=== PATIENT | male | born 1940 | race Caucasian/White ===

== ENCOUNTER 2016-11-29 13:16 | Inpatient (IN) | payer MEDICARE, OTHER ==
[2016-11-29] MEDS ORDERED: Sodium Chloride 0.9% 10 ML Syringe FLUSH PRN (13:40)
--- NOTE | 2016-11-29 15:17 | CR ---
Chest: Frontal view of the chest was obtained. Comparison: No previous study. Heart size and mediastinum are within normal limits. Slight density within the left lung base is seen most likely due to atelectasis. Mild blunting of the lateral left costophrenic angle is seen most likely chronic. Lungs otherwise are clear. Bony structures are grossly intact. Impression: 1. Slight left basilar atelectasis. 2. Minimal blunting of the lateral left costophrenic angle as noted above. 3. Nothing acute is suspected. Diagnostic code #2
--- NOTE | 2016-11-29 15:51 | EDM.PDOC ---
ED HISTORY OF PRESENT ILLNESS - General Chief Complaint: Cardiovascular Problem Stated Complaint: [facility] Time Seen by Provider: 11/29/16 13:37 Source of Information: Reports: Patient, RN notes reviewed - History of Present Illness INITIAL COMMENTS - FREE TEXT/NARRATIVE: 76-year-old male has been transferred here from [facility] for evaluation of shortness of breath. He states he's had some shortness of breath with exertion worsening over the past year or so. Today he was just very light activity he became very short of breath late this morning. Went to the [facility]. He was noted to be tachypneic, tachycardic and therefore transferred here for further evaluation. He has no chest pain with this. He has not been coughing any more than usual. He has no known personal history for heart problems. He does not smoke. No abdominal pain nausea or vomiting. - Related Data Allergies/ADRs: Allergies Allergy/AdvReac Type Severity Reaction Status Date / Time No Known Allergies Allergy Verified 11/29/16 13:58 Home Meds: Home Meds Finasteride [Proscar] 5 mg PO DAILY 11/29/16 [History] Lisinopril 40 mg PO DAILY 11/29/16 [History] Omeprazole 20 mg PO DAILY 11/29/16 [History] amLODIPine Besylate [Amlodipine Besylate] 10 mg PO DAILY 11/29/16 [History] Doxazosin [Cardura] 4 mg PO DAILY 11/30/16 [History] Pravastatin Sodium 40 mg PO DAILY 11/30/16 [History] Apixaban [Eliquis] 5 mg PO BID #60 tablet 12/01/16 [Rx] Apixaban [Eliquis] 10 mg PO BID #9 tablet 12/01/16 [Rx] Past Medical History Cardiovascular History: Reports: High cholesterol, Hypertension Gastrointestinal History: Reports: GERD Genitourinary History: Reports: Prostate disorder, Renal disease - Past Surgical History GI Surgical History: Reports: Appendectomy, Cholecystectomy, Colonoscopy Male Surgical History: Reports: Other (see below) Other Male Surgeries/Procedures: enlarged prostrate Social & Family History - Tobacco Use Smoking Status *Q: Never Smoker - Caffeine Use Caffeine Use: Reports: Coffee - Recreational Drug Use Recreational Drug Use: No ED ROS GENERAL - Review of Systems Review Of Systems: See Below Constitutional: Denies: fever, chills, diaphoresis HEENT: Denies: Sinus problem, Throat pain Respiratory: Reports: Shortness of Breath. Denies: Wheezing, Pleuritic Chest Pain Cardiovascular: Denies: Chest pain GI/Abdominal: Denies: Abdominal pain, Nausea, Vomiting Musculoskeletal: Denies: shoulder pain, arm pain, back pain Skin: Reports: no symptoms Neurological: Denies: Numbness, Tingling, Trouble Speaking, Weakness ED EXAM, GENERAL - Physical Exam Exam: See Below General Appearance: alert, other (Moderately short of breath) Eye Exam: bilateral eye: PERRL Nose: normal inspection Throat/Mouth: Normal inspection, Normal oropharynx Head: atraumatic. No: facial swelling Neck: supple, full range of motion, other (No JVD) Respiratory/Chest: respiratory distress (Moderate tachypnea). No: rales, rhonchi, wheezing, stridor Cardiovascular: tachycardia GI/Abdominal: soft, non tender Back Exam: No: CVA tenderness (L), CVA tenderness (R) Extremities: normal inspection. No: pedal edema, leg pain Neurological: alert, oriented, no motor/sensory deficits Skin Exam: Warm, Dry, Normal color Course - Vital Signs Last Recorded V/S: Last Vital Signs Temp 97.8 F 12/01/16 12:30 Pulse 94 12/01/16 12:30 Resp 20 12/01/16 12:30 BP 132/79 12/01/16 12:30 Pulse Ox 93 L 12/01/16 12:30 - Orders/Labs/Meds Labs: Laboratory Tests 11/29/16 11/29/16 11/29/16 Range/Units 13:28 13:28 13:28 WBC 7.38 (4.23-9.07) K/mm3 RBC 4.30 L (4.63-6.08) M/mm3 Hgb 12.8 L (13.7-17.5) gm/L Hct 39.5 L (40.1-51.0) % MCV 91.9 (79.0-92.2) fl MCH 29.8 (25.7-32.2) pg MCHC 32.4 (32.2-35.5) g/dl RDW Std Deviation 44.8 H (35.1-43.9) fL Plt Count 156 L (163-337) K/mm3 MPV 11.2 (9.4-12.3) fl Neut % (Auto) 61.7 (34.0-67.9) % Lymph % (Auto) 23.3 (21.8-53.1) % Hughes % (Auto) 11.2 (5.3-12.2) % Eos % (Auto) 2.7 (0.8-7.0) Baso % (Auto) 0.8 (0.1-1.2) % Neut # (Auto) 4.55 (1.78-5.38) K/mm3 Lymph # (Auto) 1.72 (1.32-3.57) K/mm3 Hughes # (Auto) 0.83 H (0.30-0.82) K/mm3 Eos # (Auto) 0.20 (0.04-0.54) K/mm3 Baso # (Auto) 0.06 (0.01-0.08) K/mm3 D-Dimer, Quantitative 3.84 H (0.19-0.59) mg/L Sodium 141 (136-145) mEq/L Potassium 4.2 (3.5-5.1) mEq/L Chloride 107 (98-107) mEq/L Carbon Dioxide 21 (21-32) mEq/L Anion Gap 17.2 H (5-15) BUN 28 H (7-18) mg/dL Creatinine 2.0 H (0.7-1.3) mg/dL Est Cr Clr Drug Dosing 32.95 mL/min Estimated GFR (MDRD) 33 (>60) mL/min BUN/Creatinine Ratio 14.0 (14-18) Glucose 163 H (83-115) mg/dL Calcium 8.5 (8.5-10.1) mg/dL Total Bilirubin 0.4 (0.2-1.0) mg/dL AST 32 (15-37) U/L ALT 52 (16-63) U/L Alkaline Phosphatase 90 (46-116) U/L Troponin I < 0.017 (0.00-0.056) ng/mL B-Natriuretic Peptide (0-100) pg/mL Total Protein 7.2 (6.4-8.2) g/dl Albumin 3.9 (3.4-5.0) g/dl Globulin 3.3 gm/dL Albumin/Globulin Ratio 1.2 (1-2) 11/29/16 Range/Units 13:28 WBC (4.23-9.07) K/mm3 RBC (4.63-6.08) M/mm3 Hgb (13.7-17.5) gm/L Hct (40.1-51.0) % MCV (79.0-92.2) fl MCH (25.7-32.2) pg MCHC (32.2-35.5) g/dl RDW Std Deviation (35.1-43.9) fL Plt Count (163-337) K/mm3 MPV (9.4-12.3) fl Neut % (Auto) (34.0-67.9) % Lymph % (Auto) (21.8-53.1) % Hughes % (Auto) (5.3-12.2) % Eos % (Auto) (0.8-7.0) Baso % (Auto) (0.1-1.2) % Neut # (Auto) (1.78-5.38) K/mm3 Lymph # (Auto) (1.32-3.57) K/mm3 Hughes # (Auto) (0.30-0.82) K/mm3 Eos # (Auto) (0.04-0.54) K/mm3 Baso # (Auto) (0.01-0.08) K/mm3 D-Dimer, Quantitative (0.19-0.59) mg/L Sodium (136-145) mEq/L Potassium (3.5-5.1) mEq/L Chloride (98-107) mEq/L Carbon Dioxide (21-32) mEq/L Anion Gap (5-15) BUN (7-18) mg/dL Creatinine (0.7-1.3) mg/dL Est Cr Clr Drug Dosing mL/min Estimated GFR (MDRD) (>60) mL/min BUN/Creatinine Ratio (14-18) Glucose (83-115) mg/dL Calcium (8.5-10.1) mg/dL Total Bilirubin (0.2-1.0) mg/dL AST (15-37) U/L ALT (16-63) U/L Alkaline Phosphatase (46-116) U/L Troponin I (0.00-0.056) ng/mL B-Natriuretic Peptide 47 (0-100) pg/mL Total Protein (6.4-8.2) g/dl Albumin (3.4-5.0) g/dl Globulin gm/dL Albumin/Globulin Ratio (1-2) Meds: Medications Discontinued Medications Generic Name Dose Route Start Last Admin Trade Name Freq PRN Reason Stop Dose Admin Al Hydroxide/Mg Hydroxide 30 ml 11/30/16 12:03 Mag-Al Plus PO Q4H PRN Heartburn Albuterol 2.5 mg 11/30/16 11:59 11/30/16 12:12 Proventil Neb Soln NEB 2.5 mg Q4H PRN Administration wheezing,sob Albuterol/Ipratropium 3 ml 11/29/16 20:07 Duoneb 3.0-0.5 Mg/3 Ml NEB QID PRN Shortness of Breath Amlodipine Besylate 10 mg 11/30/16 09:00 Norvasc PO DAILY JANETT Amlodipine Besylate 10 mg 11/29/16 21:00 11/30/16 21:04 Norvasc PO 10 mg BEDTIME JANETT Administration Apixaban 10 mg 11/30/16 08:00 12/01/16 10:19 Eliquis PO 12/06/16 23:59 10 mg BID JANETT Administration Apixaban 5 mg 12/07/16 09:00 Eliquis PO BID JANETT Diphtheria/Tetanus/Acell Pertussis 0.5 ml 11/29/16 20:27 Boostrix IM 11/29/16 20:28 .ONCE ONE Diphtheria/Tetanus/Acell Pertussis 0.5 ml 12/01/16 10:04 12/01/16 10:18 Boostrix IM 12/01/16 10:05 0.5 ml .ONCE ONE Administration Doxazosin Mesylate 4 mg 11/30/16 09:00 11/30/16 10:15 Cardura PO 4 mg DAILY JANETT Administration Doxazosin Mesylate 4 mg 12/01/16 18:00 Cardura PO QPM JANETT Enoxaparin Sodium 100 mg 11/29/16 17:21 11/29/16 17:27 Lovenox SUBCUT 11/29/16 17:22 100 mg ONETIME ONE Administration Finasteride 5 mg 11/30/16 09:00 Proscar PO DAILY JANETT Finasteride 5 mg 11/30/16 21:00 11/30/16 21:04 Proscar PO 5 mg BEDTIME JANETT Administration Lidocaine HCl 10 ml 12/01/16 09:53 12/01/16 10:15 Xylocaine 2% Jelly MUCMEM 12/01/16 09:54 10 ml ONETIME ONE Administration Lisinopril 40 mg 11/30/16 09:00 12/01/16 10:19 Prinivil PO 40 mg DAILY JANETT Administration Non-Formulary Medication 4 mg 11/30/16 09:00 Doxazosin Mesylate [Cardura Xl] PO DAILY JANETT Pantoprazole Sodium 40 mg 11/29/16 22:00 11/30/16 21:07 Protonix PO 40 mg 2200 JANETT Administration Doxazosin Mesylate [ 0 each 11/29/16 21:00 Cardura Xl] 4 Mg PO DAILY JANETT Pneumococcal 13-Valent Conj Vacc 0.5 ml 12/01/16 09:59 12/01/16 10:15 Prevnar 13 IM 12/01/16 10:00 0.5 ml .ONCE ONE Administration Pneumococcal Polyvalent Vaccine 0.5 ml 11/29/16 20:27 Pneumovax 23 IM 11/29/16 20:28 .ONCE ONE Simvastatin 20 mg 11/30/16 09:00 12/01/16 10:18 Zocor PO 20 mg DAILY JANETT Administration Sodium Chloride 10 ml 11/29/16 13:40 11/29/16 14:04 Saline Flush FLUSH 10 ml ASDIRECTED PRN Administration Keep Vein Open Sodium Chloride 10 ml 11/30/16 08:20 Saline Flush FLUSH ASDIRECTED PRN Keep Vein Open - Re-Assessments/Exams Free Text/Narrative Re-Assessment/Exam: 11/29/16 15:00. D-dimer did come back elevated at 3. Something. Chest x-ray does not show infiltrate, fluid or other etiology for her dyspnea, tachypnea, relative hypoxia. Therefore PE is of major concern. Unfortunately his creatinine is 2.0 so we cannot do a CT pulmonary angiogram. We will do a V/Q scan, see what that shows and go from there. Departure - Departure Time of Disposition: 14:00 Disposition: Admitted As Inpatient 67 Condition: serious Clinical Impression: Pulmonary embolism Qualifiers: Chronicity: acute Acute cor pulmonale presence: without acute cor pulmonale
[2016-11-29] MEDS ORDERED: Enoxaparin 100 MG/1 ML Syringe SUBCUT ONE (17:21)
--- NOTE | 2016-11-29 19:57 | PCM.HP ---
H&P History of Present Illness - General Date of Service: 11/29/16 Admit Problem/Dx: Admission Diagnosis/Problem Admission Diagnosis/Problem Pulmonary embolism Source of Information: Patient, Provider History Limitations: Reports: No limitations - History of Present Illness Initial Comments - Free Text/Narative: 76 year old active male from the [facility] for an evaluation of sudden SOB, moderate to severe. He is being admitted to the ICU for close monitoring with tachycardia and a high probability VQ scan. He denies syncope, pre- syncope and CP. There has been no orthopnea or PND. VS in the ED, HR 123, BP 169/78. 141/4.2/107/21/28/2.0; GFR 33; BNP 47/TN I <0.017. Onset of Symptoms: Reports: today, sudden Duration of Symptoms: Reports: Hour(s):, Getting worse Location: Reports: chest Severity: moderate Improves with: Reports: Medication Worsens with: Reports: None Associated Symptoms: Reports: chest pain, shortness of breath, weakness - Related Data Allergies/Adverse Reactions: Allergies Allergy/AdvReac Type Severity Reaction Status Date / Time No Known Allergies Allergy Verified 11/29/16 13:58 Home Medications: Home Meds Doxazosin Mesylate [Cardura XL] 4 mg PO DAILY 11/29/16 [History] Finasteride [Proscar] 5 mg PO DAILY 11/29/16 [History] Lisinopril 40 mg PO DAILY 11/29/16 [History] Omeprazole 20 mg PO DAILY 11/29/16 [History] Pravastatin [Pravachol] 80 mg PO DAILY 11/29/16 [History] amLODIPine Besylate [Amlodipine Besylate] 10 mg PO DAILY 11/29/16 [History] Past Medical History Cardiovascular History: Reports: High cholesterol, Hypertension Gastrointestinal History: Reports: GERD Genitourinary History: Reports: Prostate disorder, Renal disease - Past Surgical History GI Surgical History: Reports: Appendectomy, Cholecystectomy, Colonoscopy Male Surgical History: Reports: Other (see below) Other Male Surgeries/Procedures: enlarged prostrate Social & Family History - Tobacco Use Smoking Status *Q: Never Smoker - Caffeine Use Caffeine Use: Reports: Coffee - Recreational Drug Use Recreational Drug Use: No H&P Review of Systems - Review of Systems: Review Of Systems: See Below General: Reports: weakness, fatigue HEENT: Reports: no symptoms Pulmonary: Reports: Shortness of Breath, Wheezing Cardiovascular: Reports: chest pain Gastrointestinal: Reports: No symptoms Genitourinary: Reports: no symptoms Musculoskeletal: Reports: no symptoms Skin: Reports: no symptoms Psychiatric: Reports: no symptoms Neurological: Reports: No Symptoms Hematologic/Lymphatic: Reports: no symptoms Immunologic: Reports: no symptoms Exam - Exam Exam: See Below - Vital Signs Vital Signs: Last Vital Signs Temp 36.1 C 11/29/16 13:24 Pulse 123 H 11/29/16 13:24 Resp 18 11/29/16 13:24 BP 169/78 H 11/29/16 13:24 Pulse Ox 93 L 11/29/16 13:24 Weight: 106.594 kg - Exam Quality Assessment: supplemental oxygen, DVT prophylaxis General: alert, oriented, cooperative, mild distress HEENT: Nares patent, Normal nasal septum, Pupils equal, Pupils reactive Neck: supple, trachea midline Lungs: Normal respiratory effort, Decreased breath sounds, Wheezing Cardiovascular: regular rate, tachycardia Abdomen: normal bowel sounds, soft (Male) Exam: Deferred Rectal (Males) Exam: Deferred Back Exam: normal inspection Extremities: normal pulses Skin: warm Neurological: cranial nerves intact, reflexes equal bilateral Neuro Extensive - Mental Status: alert, oriented x3, normal mood/affect, normal cognition, memory intact Neuro Extensive - Motor, Sensory, Reflexes: CN II-XII intact Psychiatric: alert, normal affect, normal mood - Patient Data Result Diagrams: 11/29/16 13:28 11/29/16 13:28 *Q Meaningful Use (ADM) - VTE *Q VTE Criteria *Q: - Stroke *Q Stroke Criteria *Q: - AMI *Q AMI Criteria *Q: - Problem List (1) Pulmonary embolus SNOMED Code(s): 64930416, 35897005 ICD Code: I26.99 - OTHER PULMONARY EMBOLISM WITHOUT ACUTE COR PULMONALE Status: Acute Current Visit: Yes (2) Hyperlipidemia SNOMED Code(s): 80520641 ICD Code: E78.5 - HYPERLIPIDEMIA, UNSPECIFIED Status: Acute Current Visit : Yes (3) Hypertension SNOMED Code(s): 05244995 ICD Code: I10 - ESSENTIAL (PRIMARY) HYPERTENSION Status: Acute Current Visit: Yes (4) Chronic kidney disease SNOMED Code(s): 693516865 ICD Code: N18.9 - CHRONIC KIDNEY DISEASE, UNSPECIFIED Status: Acute Current Visit: Yes Problem List Initiated/Reviewed/Updated: Yes Orders Last 24hrs: Active Orders 24 hr Category Date Time Status Vital Signs [RC] PER UNIT ROUTINE Care 11/29/16 19:25 Active Consult to Case Management [CONS] Routine Cons 11/29/16 19:49 Ordered Consult to Occupational Therapy [OT Evaluation and Cons 11/30/16 09:00 Active Treatment] [CONS] Routine Consult to Physical Therapy [PT Evaluation and Cons 12/01/16 09:00 Active Treatment] [CONS] Routine BASIC METABOLIC PANEL,BMP [CHEM] DAILY Lab 11/30/16 05:00 Ordered BASIC METABOLIC PANEL,BMP [CHEM] DAILY Lab 12/01/16 05:00 Ordered BASIC METABOLIC PANEL,BMP [CHEM] DAILY Lab 12/02/16 05:00 Ordered CBC WITH AUTO DIFF [HEME] DAILY Lab 11/30/16 05:00 Ordered CBC WITH AUTO DIFF [HEME] DAILY Lab 12/01/16 05:00 Ordered CBC WITH AUTO DIFF [HEME] DAILY Lab 12/02/16 05:00 Ordered TROPONIN I [CHEM] Routine Lab 11/30/16 05:00 Ordered Apixaban [Eliquis] Med 11/30/16 08:00 Ordered 10 mg PO BID Doxazosin Mesylate [Cardura XL] Med 11/29/16 21:00 Ordered 4 mg PO DAILY Finasteride [Proscar] Med 11/30/16 09:00 Ordered 5 mg PO DAILY Lisinopril [Lisinopril] Med 11/30/16 09:00 Ordered 40 mg PO DAILY Omeprazole [Omeprazole] Med 11/30/16 09:00 Ordered 20 mg PO DAILY Pravastatin Med 11/30/16 09:00 Ordered 80 mg PO DAILY amLODIPine [Norvasc] Med 11/29/16 21:00 Ordered 10 mg PO DAILY Code Status [Resuscitation Status] Routine Resus Stat 11/29/16 19:25 Ordered Medication Orders Apixaban (Eliquis) 10 mg PO BID JANETT Finasteride (Proscar) 5 mg PO DAILY JANETT Non-Formulary Medication (Lisinopril [Lisinopril]) 40 mg PO DAILY JANETT Non-Formulary Medication (Omeprazole [Omeprazole]) 20 mg PO DAILY JANETT Non-Formulary Medication (Pravastatin) 80 mg PO DAILY JANETT Sodium Chloride (Saline Flush) 10 ml FLUSH ASDIRECTED PRN PRN Reason: Keep Vein Open Last Admin: 11/29/16 14:04 Dose: 10 ml Assessment/Plan Comment:: Impression: PE, hemodynamically stable SOB Chronic HTN Hyperlipidemia GERD CKD Plan: Eliquis 10 mg BID, decrease to 5 mg BID per indication 2D echo re: RV strain Home meds Daily Labs GI prophylaxis
[2016-11-29] MEDS ORDERED: Albuterol/Ipratropium 3.0-0.5 MG/3 ML Neb Soln NEB PRN (20:07)
[2016-11-29] MEDS ORDERED: Diphtheria,Pertussis(Acell),Tetanus Vaccine 0.5 ML SDV inactive IM ONE (20:27)
[2016-11-29] MEDS ORDERED: Pneumococcal Polyvalent-23 Vaccine 0.5 ML SDV IM ONE (20:27)
[2016-11-29] MEDS ORDERED: DOXAZOSIN MESYLATE 4 MG PO SCH (21:00)
[2016-11-29] MEDS: amLODIPine 10 MG Tab PO SCH (21:07)
[2016-11-29] MEDS: Pantoprazole 40 MG Tab.CR PO SCH (21:46)
[2016-11-30] MEDS ORDERED: Sodium Chloride 0.9% 10 ML Syringe FLUSH PRN (08:20)
[2016-11-30] MEDS ORDERED: DOXAZOSIN MESYLATE 4 MG PO SCH (09:00)
[2016-11-30] MEDS ORDERED: amLODIPine 10 MG Tab PO SCH (09:00)
[2016-11-30] MEDS ORDERED: Finasteride 5 MG Tab PO SCH ×2 (09:00→21:00)
[2016-11-30] MEDS ORDERED: Doxazosin 4 MG Tab PO SCH (09:00)
--- NOTE | 2016-11-30 09:16 | NM ---
Ventilation/perfusion lung scan Technique: 2.0 mCi of technetium 99m MAA was given intravenously. Scintigraphic imaging then obtained over both lung hernandez. During the study, 40.5 mCi of technetium 99m DTPA was aerosolized and patient inhaled the mixture. Continued scintigraphic imaging was obtained. Findings: Multiple subsegmental and segmental defects are seen on the perfusion study showing mismatch on the ventilation exam. Impression: 1. Findings felt compatible with high probability for pulmonary embolism. Agree with preliminary report issued by [facility] (preliminary report dictated on 11/29/16, 6:24 PM Central Time) Diagnostic code #5
--- NOTE | 2016-11-30 09:52 | PCM.PN ---
- General Info Date of Service: 11/30/16 Admission Dx/Problem (Free Text): Admission Diagnosis/Problem Admission Diagnosis/Problem Pulmonary embolism Subjective Update: Follow Up Functional Status: Reports: pain controlled, tolerating diet, ambulating, urinating. Denies: new symptoms - Review of Systems General: Denies: Fever, Chills HEENT: Reports: no symptoms Pulmonary: Reports: wheezing. Denies: shortness of breath Cardiovascular: Denies: Chest Pain, Palpitations, Dyspnea on Exertion, Edema Gastrointestinal: Denies: Abdominal pain, Nausea, Vomiting Genitourinary: Reports: no symptoms Musculoskeletal: Reports: no symptoms Skin: Denies: cyanosis, jaundice, rash Neurological: Denies: Confusion, Dizziness, Difficulty Walking, Weakness Psychiatric: Denies: depression, anxiety, hallucinations Systems Review Comment:: No overnight or acute issues. He has trouble urinating but this is not new to him. His O2 sat stable at 95% on 2L NC. - Patient Data Vitals - most recent: Last Vital Signs Temp 36.6 C 11/30/16 04:00 Pulse 85 11/30/16 04:00 Resp 20 11/30/16 04:00 BP 127/67 11/30/16 04:00 Pulse Ox 95 11/30/16 04:00 Weight - most recent: 106.685 kg I&O - last 24 hours: Intake & Output 11/29/16 11/30/16 11/30/16 22:59 06:59 14:59 Intake Total 480 Output Total 825 Balance -345 Lab Results last 24 hrs: Laboratory Results - last 24 hr 11/30/16 11/30/16 Range/Units 06:25 06:25 WBC 5.79 (4.23-9.07) K/mm3 RBC 4.20 L (4.63-6.08) M/mm3 Hgb 12.6 L (13.7-17.5) gm/L Hct 38.2 L (40.1-51.0) % MCV 91.0 (79.0-92.2) fl MCH 30.0 (25.7-32.2) pg MCHC 33.0 (32.2-35.5) g/dl RDW Std Deviation 44.3 H (35.1-43.9) fL Plt Count 157 L (163-337) K/mm3 MPV 10.9 (9.4-12.3) fl Neut % (Auto) 56.3 (34.0-67.9) % Lymph % (Auto) 28.8 (21.8-53.1) % [place] % (Auto) 12.1 (5.3-12.2) % Eos % (Auto) 2.1 (0.8-7.0) Baso % (Auto) 0.5 (0.1-1.2) % Neut # (Auto) 3.26 (1.78-5.38) K/mm3 Lymph # (Auto) 1.67 (1.32-3.57) K/mm3 [place] # (Auto) 0.70 (0.30-0.82) K/mm3 Eos # (Auto) 0.12 (0.04-0.54) K/mm3 Baso # (Auto) 0.03 (0.01-0.08) K/mm3 Sodium 140 (136-145) mEq/L Potassium 4.3 (3.5-5.1) mEq/L Chloride 107 (98-107) mEq/L Carbon Dioxide 21 (21-32) mEq/L Anion Gap 16.3 H (5-15) BUN 25 H (7-18) mg/dL Creatinine 1.9 H (0.7-1.3) mg/dL Est Cr Clr Drug Dosing 35.78 mL/min Estimated GFR (MDRD) 35 (>60) mL/min BUN/Creatinine Ratio 13.2 L (14-18) Glucose 138 H (83-115) mg/dL Calcium 8.6 (8.5-10.1) mg/dL Troponin I < 0.017 (0.00-0.056) ng/mL Med Orders - Current: Current Medications Albuterol/Ipratropium (Duoneb 3.0-0.5 Mg/3 Ml) 3 ml NEB QID PRN PRN Reason: Shortness of Breath Amlodipine Besylate (Norvasc) 10 mg PO BEDTIME [facility] Last Admin: 11/29/16 21:07 Dose: 10 mg Apixaban (Eliquis) 10 mg PO BID [facility] Stop: 12/06/16 23:59 Apixaban (Eliquis) 5 mg PO BID [facility] Doxazosin Mesylate (Cardura) 4 mg PO DAILY [facility] Finasteride (Proscar) 5 mg PO BEDTIME JANETT Lisinopril (Prinivil) 40 mg PO DAILY [facility] Pantoprazole Sodium (Protonix) 40 mg PO 2200 [facility] Last Admin: 11/29/16 21:46 Dose: 40 mg Simvastatin (Zocor) 20 mg PO DAILY [facility] Sodium Chloride (Saline Flush) 10 ml FLUSH ASDIRECTED PRN PRN Reason: Keep Vein Open Discontinued Medications Amlodipine Besylate (Norvasc) 10 mg PO DAILY [facility] Diphtheria/Tetanus/Acell Pertussis (Boostrix) 0.5 ml IM .ONCE ONE Stop: 11/29/16 20:28 Enoxaparin Sodium (Lovenox) 100 mg SUBCUT ONETIME ONE Stop: 11/29/16 17:22 Last Admin: 11/29/16 17:27 Dose: 100 mg Finasteride (Proscar) 5 mg PO DAILY [facility] Non-Formulary Medication (Doxazosin Mesylate [Cardura Xl]) 4 mg PO DAILY [facility] Doxazosin Mesylate [ (Cardura Xl] 4 Mg) 0 each PO DAILY [facility] Pneumococcal Polyvalent Vaccine (Pneumovax 23) 0.5 ml IM .ONCE ONE Stop: 11/29/16 20:28 Sodium Chloride (Saline Flush) 10 ml FLUSH ASDIRECTED PRN PRN Reason: Keep Vein Open Last Admin: 11/29/16 14:04 Dose: 10 ml - Exam Quality Assessment: supplemental oxygen (2l NC at 95%) General: alert, oriented, cooperative, no acute distress, other (Obese) HEENT: Pupils equal, Pupils reactive, EOMI, Mucous membr. moist/pink Neck: supple, trachea midline, no JVD, no thyromegaly Lungs: Normal respiratory effort, Wheezing Cardiovascular: Regular Rate, Regular Rhythm Abdomen: bowel sounds present, soft, no tenderness, no distension, other (Obese) (Male) Exam: Deferred Back Exam: normal inspection, decreased range of motion Extremities: no edema, normal pulses, no tenderness/swelling, no clubbing, no cyanosis, no calf tenderness Skin: warm, dry, intact Neurological: no new focal deficit Psy/Mental Status: alert, normal affect, normal mood - Problem List Review Problem List Initiated/Reviewed/Updated: Yes - Plan Plan:: Impression: Acute: Multiple PEs, remains hemodynamically stable - Likely unprovoked - No genetic hx/o coagulopathy, No recent surgery, prolonged travel or hx/o blood clot - Admits to being cough potato lately - No leg complaints, no edema or erythema - Work up for etiology can be done after treatment Hypoxemia 2/2 Above - Continue supplemental O2 Urinary Frequency - Has hx/o BPH - He is only on proscar - Will resume his cardura Chronic HTN Hyperlipidemia GERD CKD Stage 3-4, Stable BPH Plan: Continue current treatment Transfer to Med-Surg Eliquis 10 mg BID, decrease to 5 mg BID per indication 2D echo re: RV strain, completed awaiting final report Routine AM Labs GI prophylaxis Additional orders as above Possible d/c in 1-2 days
[2016-11-30] MEDS: Simvastatin 20 MG Tab PO SCH (10:14)
[2016-11-30] MEDS: Apixaban 5 MG Tab PO SCH ×3 (10:14→21:04)
[2016-11-30] MEDS: Lisinopril 20 MG Tab PO SCH (10:15)
[2016-11-30] MEDS ORDERED: Albuterol 0.083% 2.5 MG/3 ML Neb Soln NEB PRN (11:59)
[2016-11-30] MEDS ORDERED: Aluminum Hydroxide/Magnesium Hydroxide/Simethicone Susp 30 ML Cup PO PRN (12:03)
[2016-11-30] MEDS: amLODIPine 10 MG Tab PO SCH (21:04)
[2016-11-30] MEDS: Pantoprazole 40 MG Tab.CR PO SCH (21:07)
[2016-12-01] MEDS ORDERED: Doxazosin 4 MG Tab PO SCH ×2 (09:00→18:00)
[2016-12-01] MEDS ORDERED: PRAVASTATIN SODIUM 40 MG PO SCH (09:00)
--- NOTE | 2016-12-01 09:48 | US ---
Bilateral lower extremity deep venous ultrasound: Duplex and color flow imaging was obtained of the right and left common femoral, proximal greater saphenous, superficial femoral, popliteal, posterior tibial and peroneal veins. Findings: Lack of phasic flow, augmentation and compression seen within the right popliteal, posterior tibial and peroneal veins compatible with deep venous thrombosis. Other veins show normal phasic flow, augmentation and compression. Impression: 1. Findings compatible with thrombus within the right popliteal, posterior tibial and peroneal veins. Diagnostic code #5 [facility] Smeller called and talked with Dr. Marinelli, as Dr. Balderas had left already on 12/01/16 at 08:57.
[2016-12-01] MEDS ORDERED: Lidocaine 2% Jelly 10 ML Urojet MUCMEM ONE (09:53)
[2016-12-01] MEDS ORDERED: Pneumococcal 13-Valent Conjugate Vaccine 0.5 ML Syringe IM ONE (09:59)
[2016-12-01] MEDS ORDERED: Diphtheria,Pertussis(Acell),Tetanus Vaccine 0.5 ML SDV inactive IM ONE (10:04)
[2016-12-01] MEDS: Simvastatin 20 MG Tab PO SCH (10:18)
[2016-12-01] MEDS: Apixaban 5 MG Tab PO SCH (10:19)
[2016-12-01] MEDS: Lisinopril 20 MG Tab PO SCH (10:19)
--- NOTE | 2016-12-01 10:40 | PCM.DCSUM1 ---
Discharge Summary - Hospital Course Brief History: This is a 76 year old white male who comes form [facility] for an evaluation of sudden onset of moderate to severe SOB and was found to have multiple sub-segmental defects on V/Q scan compatible with PE. - Discharge Data Discharge Date: 12/08/16 Discharge Disposition: Home, Self-Care 01 Condition: Good - Discharge Diagnosis/Problem(s) (1) Hypoxemia SNOMED Code(s): 422985489 ICD Code: R09.02 - HYPOXEMIA Status: Acute (2) Urinary retention SNOMED Code(s): 973098762 ICD Code: R33.9 - RETENTION OF URINE, UNSPECIFIED Status: Acute (3) Chronic kidney disease SNOMED Code(s): 413147576 ICD Code: N18.9 - CHRONIC KIDNEY DISEASE, UNSPECIFIED Status: Chronic Qualifiers: Chronic kidney disease stage: stage 4 (severe) Qualified Code(s): N18.4 - Chronic kidney disease, stage 4 (severe) (4) Pulmonary embolus SNOMED Code(s): 49000169, 66310229 ICD Code: I26.99 - OTHER PULMONARY EMBOLISM WITHOUT ACUTE COR PULMONALE Status: Acute Qualifiers: Chronicity: acute Acute cor pulmonale presence: without acute cor pulmonale - Patient Summary/Data Operative Procedure(s) Performed: None Complications: None Consults: Consultations 11/29/16 19:49 Consult to Case Management [CONS] Routine 11/30/16 09:00 Consult to Occupational Therapy [OT Evaluation and Treatment] [CONS] Routine 12/01/16 09:00 Consult to Physical Therapy [PT Evaluation and Treatment] [CONS] Routine Hospital Course: Patient was primarily admitted for unprovoked PE. He admitted to being a "cough potato" for the past week leading to his admission. His V/Q scan showed multiple pulmonary embolism and his Duplex U/S was positive for DVT on right popliteal, posterior tibial and peroneal veins. Patient was put on eliquis for treatment of PE/DVT and he tolerated the medication well. His hospital course was fairly uncomplicated. He did have some issues with hypoxemia related to his multiple blood clot but he was provided with supplemental O2. His O2 saturation hovers in the 88-92 on RA but otherwise fairly stable since admission. On this admission, he developed urinary retention related to his underlying BPH. He was continued on his Proscar and Cardura but w/o much help. We agreed however to have marshall catheter in and he will be further evaluated by outpatient Urology in 2-3 weeks. Patient has done fairly well since admission. He will be discharged with eliquis 10 mg po BID for the next 3 days as he could not afford it and (it appears) his insurance would not cover this medication. Patient will see Lyla Rowell on Sunday at 1300 instead of her PCP (Sandra Gonzalez), he will be likely switched to Warfarin/Lovenox from there on for standard treatment. Patient was advised to come back or seek immediate care for worsening of his symptoms. He expressed understanding and in agreement with the plans as discussed above. His PCP was called and updated on the day of discharge. - Patient Instructions Diet: Usual Diet as Tolerated Activity: As Tolerated Driving: Do Not Drive Showering/Bathing: May Shower Notify Provider of: Fever, Increased Pain, Swelling and Redness, Nausea and/or Vomiting Other/Special Instructions: - Please take all medications as directed. - Use supplemental O2 provided for shortness of breath as instructed. - Keep your appointment with Urology as scheduled. - Call you PCP for any questions or concerns - Discharge Plan Prescriptions/Med Rec: Apixaban [Eliquis] 5 mg PO BID #60 tablet Apixaban [Eliquis] 10 mg PO BID #9 tablet Home Medications: Home Meds Finasteride [Proscar] 5 mg PO DAILY 11/29/16 [History] Lisinopril 40 mg PO DAILY 11/29/16 [History] Omeprazole 20 mg PO DAILY 11/29/16 [History] amLODIPine Besylate [Amlodipine Besylate] 10 mg PO DAILY 11/29/16 [History] Doxazosin [Cardura] 4 mg PO DAILY 11/30/16 [History] Pravastatin Sodium 40 mg PO DAILY 11/30/16 [History] Apixaban [Eliquis] 5 mg PO BID #60 tablet 12/01/16 [Rx] Apixaban [Eliquis] 10 mg PO BID #9 tablet 12/01/16 [Rx] Patient Handouts: Marshall Catheter Care, Adult, Incentive Spirometer, Pulmonary Embolism, Apixaban oral tablets Referrals: Deion Dimas MD [Ordering Only Provider] - 12/07/16 11:15 am (The [facility] has been set up to come pick you up to bring you to this appointment at 06:45 am. This urology appointment is in Central Standard Time (PERFORMANCE SPECIALIST). Come to [facility] at 10:45 am (PERFORMANCE SPECIALIST) and check in at the admitting desk at [facility]. Bring photo ID, insurance cars and a list of medications to this appointment.) Sandra Gonzalez NP [Primary Care Provider] - 12/11/16 10:30 am (You will need to arrange transportation to and from this appointment with Sandra) - Discharge Summary/Plan Comment DC Time >30 min.: Yes (45 mins) Discharge Summary/Plan Comment: Discharge to Home - General Info Date of Service: 12/01/16 Admission Dx/Problem (Free Text: Admission Diagnosis/Problem Admission Diagnosis/Problem Pulmonary embolism Subjective Update: Follow Up Functional Status: Reports: pain controlled, tolerating diet, ambulating, urinating. Denies: new symptoms - Review of Systems General: Denies: Fever, Chills HEENT: Reports: no symptoms Pulmonary: Denies: shortness of breath Cardiovascular: Denies: Chest Pain, Palpitations, Dyspnea on Exertion, Edema Gastrointestinal: Denies: Abdominal pain, Nausea, Vomiting Genitourinary: Reports: frequency, retention Musculoskeletal: Reports: no symptoms Skin: Reports: no symptoms Neurological: Denies: Confusion, Difficulty Walking, Weakness Psychiatric: Denies: depression, anxiety, hallucinations, suicidal ideation - Patient Data Vitals - Most Recent: Last Vital Signs Temp 36.6 C 12/01/16 08:05 Pulse 90 12/01/16 08:05 Resp 20 12/01/16 08:05 BP 140/81 12/01/16 08:05 Pulse Ox 85 L 12/01/16 09:23 Weight - Most Recent: 107.955 kg I&O - Last 24 hours: Intake & Output 11/30/16 12/01/16 12/01/16 22:59 06:59 14:59 Intake Total 600 Output Total 2080 985 Balance -1480 -985 Lab Results - Last 24 hrs: Laboratory Results - last 24 hr 11/30/16 12/01/16 12/01/16 Range/Units 09:45 05:30 05:30 WBC 6.72 (4.23-9.07) K/mm3 RBC 4.01 L (4.63-6.08) M/mm3 Hgb 12.0 L (13.7-17.5) gm/L Hct 36.7 L (40.1-51.0) % MCV 91.5 (79.0-92.2) fl MCH 29.9 (25.7-32.2) pg MCHC 32.7 (32.2-35.5) g/dl RDW Std Deviation 44.4 H (35.1-43.9) fL Plt Count 156 L (163-337) K/mm3 MPV 11.2 (9.4-12.3) fl Neut % (Auto) 54.4 (34.0-67.9) % Lymph % (Auto) 25.9 (21.8-53.1) % [place] % (Auto) 11.3 (5.3-12.2) % Eos % (Auto) 7.4 H (0.8-7.0) Baso % (Auto) 0.7 (0.1-1.2) % Neut # (Auto) 3.65 (1.78-5.38) K/mm3 Lymph # (Auto) 1.74 (1.32-3.57) K/mm3 [place] # (Auto) 0.76 (0.30-0.82) K/mm3 Eos # (Auto) 0.50 (0.04-0.54) K/mm3 Baso # (Auto) 0.05 (0.01-0.08) K/mm3 Sodium 140 (136-145) mEq/L Potassium 4.5 (3.5-5.1) mEq/L Chloride 106 (98-107) mEq/L Carbon Dioxide 23 (21-32) mEq/L Anion Gap 15.5 H (5-15) BUN 28 H (7-18) mg/dL Creatinine 1.8 H (0.7-1.3) mg/dL Est Cr Clr Drug Dosing 37.77 mL/min Estimated GFR (MDRD) 37 (>60) mL/min BUN/Creatinine Ratio 15.6 (14-18) Glucose 123 H (83-115) mg/dL Calcium 8.6 (8.5-10.1) mg/dL Urine Color Yellow (Yellow) Urine Appearance Clear (Clear) Urine pH 6.5 (5.0-8.0) Ur Specific [place] 1.025 (1.005-1.030) Urine Protein Trace H (Negative) Urine Glucose (UA) Negative (Negative) Urine Ketones Negative (Negative) Urine Occult Blood Negative (Negative) Urine Nitrite Negative (Negative) Urine Bilirubin Negative (Negative) Urine Urobilinogen 0.2 (0.2-1.0) Ur Leukocyte Esterase Negative (Negative) Urine RBC 0-5 (0-5) /hpf Urine WBC 0-5 (0-5) /hpf Ur Epithelial Cells Not Reportable Ur Squamous Epith Cells 0-5 (0-5) /hpf Urine Bacteria Occasional (FEW) /hpf Urine Mucus Not seen (FEW) /hpf Med Orders - Current: Current Medications Al Hydroxide/Mg Hydroxide (Mag-Al Plus) 30 ml PO Q4H PRN PRN Reason: Heartburn Albuterol (Proventil Neb Soln) 2.5 mg NEB Q4H PRN PRN Reason: wheezing,sob Last Admin: 11/30/16 12:12 Dose: 2.5 mg Albuterol/Ipratropium (Duoneb 3.0-0.5 Mg/3 Ml) 3 ml NEB QID PRN PRN Reason: Shortness of Breath Amlodipine Besylate (Norvasc) 10 mg PO BEDTIME [facility] Last Admin: 11/30/16 21:04 Dose: 10 mg Apixaban (Eliquis) 10 mg PO BID [facility] Stop: 12/06/16 23:59 Last Admin: 12/01/16 10:19 Dose: 10 mg Apixaban (Eliquis) 5 mg PO BID [facility] Doxazosin Mesylate (Cardura) 4 mg PO QPM [facility] Finasteride (Proscar) 5 mg PO BEDTIME [facility] Last Admin: 11/30/16 21:04 Dose: 5 mg Lisinopril (Prinivil) 40 mg PO DAILY [facility] Last Admin: 12/01/16 10:19 Dose: 40 mg Pantoprazole Sodium (Protonix) 40 mg PO 2200 [facility] Last Admin: 11/30/16 21:07 Dose: 40 mg Simvastatin (Zocor) 20 mg PO DAILY [facility] Last Admin: 12/01/16 10:18 Dose: 20 mg Sodium Chloride (Saline Flush) 10 ml FLUSH ASDIRECTED PRN PRN Reason: Keep Vein Open Discontinued Medications Amlodipine Besylate (Norvasc) 10 mg PO DAILY [facility] Diphtheria/Tetanus/Acell Pertussis (Boostrix) 0.5 ml IM .ONCE ONE Stop: 11/29/16 20:28 Diphtheria/Tetanus/Acell Pertussis (Boostrix) 0.5 ml IM .ONCE ONE Stop: 12/01/16 10:05 Last Admin: 12/01/16 10:18 Dose: 0.5 ml Doxazosin Mesylate (Cardura) 4 mg PO DAILY [facility] Last Admin: 11/30/16 10:15 Dose: 4 mg Enoxaparin Sodium (Lovenox) 100 mg SUBCUT ONETIME ONE Stop: 11/29/16 17:22 Last Admin: 11/29/16 17:27 Dose: 100 mg Finasteride (Proscar) 5 mg PO DAILY [facility] Lidocaine HCl (Xylocaine 2% Jelly) 10 ml MUCMEM ONETIME ONE Stop: 12/01/16 09:54 Last Admin: 12/01/16 10:15 Dose: 10 ml Non-Formulary Medication (Doxazosin Mesylate [Cardura Xl]) 4 mg PO DAILY [facility] Doxazosin Mesylate [ (Cardura Xl] 4 Mg) 0 each PO DAILY [facility] Pneumococcal 13-Valent Conj Vacc (Prevnar 13) 0.5 ml IM .ONCE ONE Stop: 12/01/16 10:00 Last Admin: 12/01/16 10:15 Dose: 0.5 ml Pneumococcal Polyvalent Vaccine (Pneumovax 23) 0.5 ml IM .ONCE ONE Stop: 11/29/16 20:28 Sodium Chloride (Saline Flush) 10 ml FLUSH ASDIRECTED PRN PRN Reason: Keep Vein Open Last Admin: 11/29/16 14:04 Dose: 10 ml - Exam General: Reports: alert, oriented, cooperative, no acute distress HEENT: Reports: Pupils equal, Pupils reactive, EOMI, Mucous membr. moist/pink Neck: Reports: supple, trachea midline, no JVD, no thyromegaly Lungs: Reports: Clear to auscultation, Normal respiratory effort Cardiovascular: Reports: Regular Rate, Regular Rhythm Abdomen: Reports: bowel sounds present, soft, no tenderness, no distension (Male) Exam: Deferred Rectal (Males) Exam: Deferred Back Exam: Reports: normal inspection, decreased range of motion Extremities: Reports: no edema, normal pulses, no tenderness/swelling, no clubbing, no cyanosis, no calf tenderness Skin: Reports: warm, dry, intact Neurological: Reports: no new focal deficit Psy/Mental Status: Reports: alert, normal affect, normal mood *Q Meaningful Use (DIS) - VTE *Q VTE Criteria *Q: - Stroke *Q Stroke Criteria *Q: - AMI *Q AMI Criteria *Q:
[2016-12-01 14:28] VITALS: BP 132/79
[2016-12-07] MEDS ORDERED: Apixaban 5 MG Tab PO SCH (09:00)
== END 2016-12-01 13:02 | disposition home or self-care (01) | DRG 176 ==
LOC: SUPCPDRO 13:16 → JD.ED 13:16 → JD.ICU 18:00
PROVIDERS: ADMIT Internal Medicine Cardiovascular Disease; ATTEND Internal Medicine Cardiovascular Disease
DX: I26.09 Other pulmonary embolism with acute cor pulmonale (principal); N28.9 Disorder of kidney and ureter, unspecified; I10 Essential (primary) hypertension; E78.00 Pure hypercholesterolemia, unspecified; I26.99 Other pulmonary embolism without acute cor pulmonale; N40.0 Benign prostatic hyperplasia without lower urinary tract symptoms; R09.02 Hypoxemia; N40.1 Benign prostatic hyperplasia with lower urinary tract symptoms; R35.0 Frequency of micturition; E78.5 Hyperlipidemia, unspecified; I12.9 Hypertensive chronic kidney disease with stage 1 through stage 4 chronic kidney disease, or unspecified chronic kidney disease; N18.3 Chronic kidney disease, stage 3 (moderate); K21.9 Gastro-esophageal reflux disease without esophagitis; Z79.01 Long term (current) use of anticoagulants; Z79.899 Other long term (current) drug therapy; Z23 Encounter for immunization
CPT/HCPCS: 36415; 71010; 78582; 80053; 83880; 84484; 85025; 85379; 93005; 99285; A9540; J1650; J7050; 80048; 81001; 90471; 90670; 90715; 93306; 93970; 93970-26; 94664; 97110-GP; 97116-GP; 97162-GP; 97165-GO; 99232; A9270-GY; G0009

== ENCOUNTER 2017-06-29 17:09 | Emergency (ER) | payer MEDICARE, OTHER ==
[2017-06-29 17:16] VITALS: BP 134/77
--- NOTE | 2017-06-29 17:35 | EDM.PDOC ---
ED HPI GENERAL MEDICAL PROBLEM - General Chief Complaint: Chest Pain Stated Complaint: [facility] Time Seen by Provider: 06/29/17 17:13 Source of Information: Reports: Patient History Limitations: Reports: No Limitations - History of Present Illness INITIAL COMMENTS - FREE TEXT/NARRATIVE: The patient is a 76-year-old male with a chief complaint of chest pain. He states that it started yesterday. He was at rest. Describes it as substernal heaviness. It is worse with activity. Better with rest. States that he consistently gets the pain anytime he tries to get up or move around. It does always resolve if he sits down and rests. No provoking factors. No history of similar symptoms previously. He does not currently have any pain. No cough or shortness of breath. No pain with inspiration. No nausea or vomiting. No abdominal pain. No lower extremity pain or swelling. The patient does take Elaquis for a pulmonary embolism that was diagnosed last November. He also has hypertension, no additional medical problems. Seen initially in [place] clinic and referred here for further care. Chest Pain Score (Numeric/FACES): 0 - Related Data Allergies Allergy/AdvReac Type Severity Reaction Status Date / Time No Known Allergies Allergy Verified 06/29/17 17:12 Home Meds: Home Meds Finasteride [Proscar] 5 mg PO DAILY 11/29/16 [History] Lisinopril 40 mg PO DAILY 11/29/16 [History] Omeprazole 20 mg PO DAILY 11/29/16 [History] amLODIPine Besylate [Amlodipine Besylate] 10 mg PO DAILY 11/29/16 [History] Doxazosin [Cardura] 4 mg PO DAILY 11/30/16 [History] Pravastatin Sodium 80 mg PO DAILY 11/30/16 [History] Apixaban [Eliquis] 5 mg PO BID #60 tablet 12/01/16 [Rx] Triamcinolone Acetonide [Triamcinolone Acetonide 0.1% Crm] 1 applic TOP BID PRN 06/29/17 [History] Past Medical History Cardiovascular History: Reports: High Cholesterol, Hypertension Respiratory History: Reports: PE, SOB Gastrointestinal History: Reports: GERD Genitourinary History: Reports: Prostate Disorder, Renal Disease Dermatologic History: Reports: Psoriasis - Infectious Disease History Infectious Disease History: Reports: Chicken Pox, Measles - Past Surgical History GI Surgical History: Reports: Appendectomy, Cholecystectomy, Colonoscopy Male Surgical History: Reports: Other (See Below) Social & Family History - Family History Family Medical History: Noncontributory - Tobacco Use Smoking Status *Q: Never Smoker Second Hand Smoke Exposure: No - Caffeine Use Caffeine Use: Reports: Coffee - Recreational Drug Use Recreational Drug Use: No ED ROS GENERAL - Review of Systems Review Of Systems: See Below Constitutional: Denies: Fever HEENT: Reports: No Symptoms Respiratory: Denies: Shortness of Breath Cardiovascular: Reports: Chest Pain Endocrine: Reports: No Symptoms GI/Abdominal: Denies: Abdominal Pain Musculoskeletal: Denies: Leg Pain Skin: Reports: No Symptoms Neurological: Reports: No Symptoms Psychiatric: Reports: No Symptoms Hematologic/Lymphatic: Reports: No Symptoms Immunologic: Reports: No Symptoms ED EXAM, GENERAL - Physical Exam Exam: See Below Exam Limited By: No Limitations General Appearance: Alert, WD/WN, No Apparent Distress Eye Exam: Bilateral Eye: EOMI, PERRL Ears: Normal External Exam Nose: Normal Inspection Throat/Mouth: Normal Inspection, Normal Voice, No Airway Compromise Head: Atraumatic, Normocephalic Neck: Normal Inspection, Supple, Non-Tender, Full Range of Motion Respiratory/Chest: No Respiratory Distress, Lungs Clear, Normal Breath Sounds, Chest Non-Tender Cardiovascular: Normal Peripheral Pulses, Regular Rate, Rhythm, No Edema, No Murmur GI/Abdominal: Soft, Non-Tender Extremities: Normal Inspection. No: Pedal Edema Neurological: Alert, Oriented, Normal Cognition, No Motor/Sensory Deficits Psychiatric: Normal Affect, Normal Mood Skin Exam: Warm, Dry, Intact, Normal Color, No Rash Course - Vital Signs Last Recorded V/S: Last Vital Signs Temp 36.9 C 06/29/17 17:12 Pulse 90 06/29/17 17:12 Resp 17 06/29/17 17:12 BP 134/77 06/29/17 17:12 Pulse Ox 95 06/29/17 17:12 - Orders/Labs/Meds Orders: Active Orders 24 hr Category Date Time Status EKG 12 Lead [EKG Documentation Completion] [RC] STAT Care 06/29/17 17:13 Active Chest 1V Frontal [CR] Stat Exams 06/29/17 17:29 Taken Labs: Laboratory Tests 06/29/17 06/29/17 Range/Units 18:32 18:32 WBC 6.98 (4.23-9.07) K/mm3 RBC 3.93 L (4.63-6.08) M/mm3 Hgb 11.8 L (13.7-17.5) gm/L Hct 36.2 L (40.1-51.0) % MCV 92.1 (79.0-92.2) fl MCH 30.0 (25.7-32.2) pg MCHC 32.6 (32.2-35.5) g/dl RDW Std Deviation 45.2 H (35.1-43.9) fL Plt Count 196 (163-337) K/mm3 MPV 10.6 (9.4-12.3) fl Neut % (Auto) 65.0 (34.0-67.9) % Lymph % (Auto) 21.3 L (21.8-53.1) % [place] % (Auto) 11.6 (5.3-12.2) % Eos % (Auto) 1.1 (0.8-7.0) Baso % (Auto) 0.4 (0.1-1.2) % Neut # (Auto) 4.53 (1.78-5.38) K/mm3 Lymph # (Auto) 1.49 (1.32-3.57) K/mm3 [place] # (Auto) 0.81 (0.30-0.82) K/mm3 Eos # (Auto) 0.08 (0.04-0.54) K/mm3 Baso # (Auto) 0.03 (0.01-0.08) K/mm3 Sodium 143 (136-145) mEq/L Potassium 4.6 (3.5-5.1) mEq/L Chloride 110 H (98-107) mEq/L Carbon Dioxide 21 (21-32) mEq/L Anion Gap 16.6 H (5-15) BUN 32 H (7-18) mg/dL Creatinine 2.0 H (0.7-1.3) mg/dL Est Cr Clr Drug Dosing 33.99 mL/min Estimated GFR (MDRD) 33 (>60) mL/min BUN/Creatinine Ratio 16.0 (14-18) Glucose 122 H (83-115) mg/dL Calcium 8.9 (8.5-10.1) mg/dL Total Bilirubin 0.3 (0.2-1.0) mg/dL AST 25 (15-37) U/L ALT 38 (16-63) U/L Alkaline Phosphatase 81 (46-116) U/L Troponin I < 0.017 (0.00-0.056) ng/mL C-Reactive Protein < 0.2 (<1.0) mg/dL Total Protein 7.2 (6.4-8.2) g/dl Albumin 3.8 (3.4-5.0) g/dl Globulin 3.4 gm/dL Albumin/Globulin Ratio 1.1 (1-2) Meds: Medications Discontinued Medications Generic Name Dose Route Start Last Admin Trade Name Gray PRN Reason Stop Dose Admin Aspirin 162 mg 06/29/17 19:00 06/29/17 19:13 Aspirin PO 162 mg DAILY JANETT Administration - Re-Assessments/Exams Free Text/Narrative Re-Assessment/Exam: 06/29/17 17:34 EKG shows normal sinus rhythm, no significant ST elevation or depression, possible subtle KS depression throughout the precordial leads. No evidence of acute ischemia or arrhythmia. 06/29/17 18:48 Patient's symptoms are concerning for possible unstable angina. EKG does not show any suggestion of acute ischemia. He does have some subtle KS depression, pericarditis is on the differential though thought less likely based on the patient's history. He is currently anticoagulated for a prior pulmonary embolism. He is not tachycardic or hypoxic, I highly doubt that he has a new PE that is causing his symptoms. Troponin pending. I originally thought patient had received aspirin at the clinic, however it appears that aspirin was not given there so we will give it now. 06/29/17 18:50 Chest x-ray shows no acute abnormality. Discussed lab results - creatinine elevated at 2.0. Patient is aware of this and is followed by nephrology in [place]. Troponin negative. I am concerned about patient's new exertional chest pain and concerned this may be angina. Patient has not ever had a stress test to his knowledge. He has been chest pain free for most of today because he 's been resting. I suggested he be admitted for at least serial troponins/ monitoring, but patient strongly prefers to go home. States he will take it easy and follow up with his primary doctor on [place] to arrange for stress testing. His risk factors include age and HTN, so heart score is 2. Given his strong preference for discharge, we will proceed with that plan. Counselled him at length re: risk of impending OH and return precautions. He understood. Departure - Departure Time of Disposition: 19:25 Disposition: Home, Self-Care 01 Clinical Impression: Chest pain Qualifiers: Chest pain type: precordial pain Qualified Code(s): R07.2 - Precordial pain Chronic renal insufficiency Qualifiers: Chronic kidney disease stage: unspecified stage Qualified Code(s): N18.9 - Chronic kidney disease, unspecified Instructions: Chest Pain Observation Referrals: PCP,None [Primary Care Provider] - Forms: ED Department Discharge Additional Instructions: 1. Follow up with your clinic provider on Sunday. Your clinic provider may want to refer you for a stress test. Your clinic provider should also follow up your kidney function. Your creatinine today is 2.0. 2. Return to the Emergency Department if you have any new or worsening chest pain, shortness of breath, lightheadedness, or any other concerning symptoms. - My Orders Last 24 Hours: My Active Orders 06/29/17 17:13 EKG 12 Lead [EKG Documentation Completion] [RC] STAT 06/29/17 17:29 Chest 1V Frontal [CR] Stat - Assessment/Plan Last 24 Hours: My Active Orders 06/29/17 17:13 EKG 12 Lead [EKG Documentation Completion] [RC] STAT 06/29/17 17:29 Chest 1V Frontal [CR] Stat
[2017-06-29] MEDS ORDERED: Aspirin 81 MG Tab.Chew PO SCH (19:00)
--- NOTE | 2017-07-01 12:00 | CR ---
Chest: Portable view of the chest was obtained. Comparison: Prior chest x-ray of 11/29/16. Elevated left hemidiaphragm is seen which is a stable finding from prior exam. Lungs are clear. Heart size and mediastinum are within normal limits. Bony structures are grossly intact. Impression: 1. Elevated left hemidiaphragm which is a stable finding. 2. Nothing acute is seen. Diagnostic code #2
== END 2017-06-29 19:42 | disposition home or self-care (01) ==
LOC: JD.ED 17:09
DX: R07.2 Precordial pain (principal); I12.9 Hypertensive chronic kidney disease with stage 1 through stage 4 chronic kidney disease, or unspecified chronic kidney disease; N18.9 Chronic kidney disease, unspecified; K21.9 Gastro-esophageal reflux disease without esophagitis; Z79.899 Other long term (current) drug therapy
CPT/HCPCS: 36415; 71010; 80053; 84484; 85025; 86140; 93005; 99285; A9270; 93010; 99284

== ENCOUNTER 2019-09-26 10:02 | Inpatient (IN) | payer MEDICARE, OTHER ==
[2019-09-26] MEDS ORDERED: Sodium Chloride 0.9% 10 ML Syringe FLUSH PRN (10:52)
[2019-09-26] MEDS ORDERED: cefTRIAXone 2 GM in Sodium Chloride 0.9% 100 ML IV ONE (10:53)
--- NOTE | 2019-09-26 10:55 | EDM.PDOC ---
ED HPI GENERAL MEDICAL PROBLEM - General Chief Complaint: Genitourinary Problem Stated Complaint: SENT FROM [facility] Time Seen by Provider: 09/26/19 10:26 Source of Information: Reports: Patient, RN Notes Reviewed - History of Present Illness INITIAL COMMENTS - FREE TEXT/NARRATIVE: 78-year-old gentleman has been transferred here from the [facility] by private vehicle him, suspected UTI, possible sepsis. He does have history of urinary retention, voiding difficulty does typically do self-catheterization at home on a regular basis. Yesterday afternoon about 4:00 there was a small amount of blood with the catheterization which was once again present at around 11:00 last evening. Further catheterization not wanting to possibly irritate or cause further bleeding. Old "bloody urine the remainder of the night about every 15-20 minutes. On presentation to the clinic this morning is found to have urinary retention,nitrite positive and leukocyte positive strongly suggestive for UTI. So tachycardic, raising concern for possible smic infection or even sepsis. On arrival to the ED patient states that he does feel somewhat dehydrated, mouth is dry leg dizzy whanding walkingor chills nausea or vomiting. They did place a catheter at the [facility] prior to transport and is reported to have had about 600 male of quite bloody urine out at the clinic there has been further hematuria while in route here to the ED.He is not on blood thinners of any kind. He has never had severe hematuria of this nature previously. Penis Pain Score (Numeric/FACES): 8 - Related Data Allergies Allergy/AdvReac Type Severity Reaction Status Date / Time No Known Allergies Allergy Verified 09/26/19 10:20 Home Meds: Home Meds Finasteride [Proscar] 5 mg PO DAILY 11/29/16 [History] Lisinopril 40 mg PO DAILY 11/29/16 [History] Omeprazole 20 mg PO DAILY 11/29/16 [History] amLODIPine Besylate [Amlodipine Besylate] 10 mg PO DAILY 11/29/16 [History] Doxazosin [Cardura] 4 mg PO DAILY 11/30/16 [History] Pravastatin Sodium 80 mg PO DAILY 11/30/16 [History] Apixaban [Eliquis] 5 mg PO BID #60 tablet 12/01/16 [Rx] Triamcinolone Acetonide [Triamcinolone Acetonide 0.1% Crm] 1 applic TOP BID PRN 06/29/17 [History] Past Medical History Cardiovascular History: Reports: High Cholesterol, Hypertension Respiratory History: Reports: PE, SOB Gastrointestinal History: Reports: GERD Genitourinary History: Reports: Prostate Disorder, Renal Disease Dermatologic History: Reports: Psoriasis - Infectious Disease History Infectious Disease History: Reports: Chicken Pox, Measles - Past Surgical History GI Surgical History: Reports: Appendectomy, Cholecystectomy, Colonoscopy Male Surgical History: Reports: Other (See Below) Social & Family History - Family History Family Medical History: Noncontributory - Tobacco Use Smoking Status *Q: Never Smoker - Caffeine Use Caffeine Use: Reports: Coffee - Recreational Drug Use Recreational Drug Use: No ED ROS GENERAL - Review of Systems Review Of Systems: See Below Constitutional: Denies: Fever, Chills, Diaphoresis HEENT: Reports: No Symptoms Respiratory: Denies: Shortness of Breath Cardiovascular: Denies: Chest Pain GI/Abdominal: Denies: Abdominal Pain, Nausea, Vomiting Musculoskeletal: Denies: Back Pain Skin: Reports: No Symptoms Neurological: Reports: Dizziness (mild) ED EXAM, GENERAL - Physical Exam Exam: See Below General Appearance: Alert, No Apparent Distress Eye Exam: Bilateral Eye: PERRL Throat/Mouth: Other Head: Atraumatic (oral mucosa mildly dry). No: Facial Swelling Neck: Supple, Other Respiratory/Chest: No Respiratory Distress (no JVD), Lungs Clear, Normal Breath Sounds Cardiovascular: Tachycardia (heart rate 103 at time of triage, 98 time of my exam) GI/Abdominal: Soft, Non-Tender (Male) Exam: Other (indwelling Bonilla catheter at time of exam with gross hematuria at time of exam, no clots visualized) Back Exam: No: CVA Tenderness (L), CVA Tenderness (R) Extremities: Normal Inspection. No: Pedal Edema Neurological: Alert, Oriented, No Motor/Sensory Deficits Skin Exam: Warm, Dry, Normal Color Course - Vital Signs Last Recorded V/S: Last Vital Signs Temp 98.0 F 09/26/19 10:13 Pulse 103 H 09/26/19 10:13 Resp 18 09/26/19 10:13 BP 148/97 H 09/26/19 10:13 Pulse Ox 98 09/26/19 10:13 - Orders/Labs/Meds Orders: Active Orders 24 hr Category Date Time Status Peripheral IV Care [RC] . DIRECTED Care 09/26/19 10:52 Active CULTURE URINE [RM] Stat Lab 09/26/19 10:54 Ordered KETONES,BLOOD [CHEM] Stat Lab 09/26/19 12:56 Ordered Sodium Chloride 0.9% [Normal Saline] 1,000 ml Med 09/26/19 11:00 Active IV ONETIME Sodium Chloride 0.9% [Saline Flush] Med 09/26/19 10:52 Active 10 ml FLUSH ASDIRECTED PRN Peripheral IV Insertion Pediatric [OM.PC] Routine Oth 09/26/19 10:51 Ordered Medication Orders Sodium Chloride (Normal Saline) 1,000 mls @ 999 mls/hr IV ONETIME JANETT Last Admin: 09/26/19 11:19 Dose: 999 mls/hr Sodium Chloride (Saline Flush) 10 ml FLUSH ASDIRECTED PRN PRN Reason: Keep Vein Open Last Admin: 09/26/19 11:19 Dose: 10 ml Labs: Laboratory Tests 09/26/19 09/26/19 09/26/19 Range/Units 11:30 11:30 11:30 WBC 13.05 H (4.23-9.07) K/mm3 RBC 4.51 L (4.63-6.08) M/mm3 Hgb 13.1 L (13.7-17.5) gm/dl Hct 38.7 L (40.1-51.0) % MCV 85.8 D (79.0-92.2) fl MCH 29.0 (25.7-32.2) pg MCHC 33.9 (32.2-35.5) g/dl RDW Std Deviation 40.2 (35.1-43.9) fL Plt Count 253 (163-337) K/mm3 MPV 10.4 (9.4-12.3) fl Neut % (Auto) 83.1 H (34.0-67.9) % Lymph % (Auto) 7.7 L (21.8-53.1) % [place] % (Auto) 8.4 (5.3-12.2) % Eos % (Auto) 0.3 L (0.8-7.0) Baso % (Auto) 0.2 (0.1-1.2) % Neut # (Auto) 10.84 H (1.78-5.38) K/mm3 Lymph # (Auto) 1.00 L (1.32-3.57) K/mm3 [place] # (Auto) 1.10 H (0.30-0.82) K/mm3 Eos # (Auto) 0.04 (0.04-0.54) K/mm3 Baso # (Auto) 0.03 (0.01-0.08) K/mm3 Manual Slide Review Abnormal smear PT 10.9 (9.7-12.0) SECONDS INR 1.00 Sodium (136-145) mEq/L Potassium (3.5-5.1) mEq/L Chloride (98-107) mEq/L Carbon Dioxide (21-32) mEq/L Anion Gap (5-15) BUN (7-18) mg/dL Creatinine (0.7-1.3) mg/dL Est Cr Clr Drug Dosing mL/min Estimated GFR (MDRD) (>60) mL/min BUN/Creatinine Ratio (14-18) Glucose (83-115) mg/dL Lactic Acid (0.4-2.0) mmol/L Calcium (8.5-10.1) mg/dL Total Bilirubin (0.2-1.0) mg/dL AST (15-37) U/L ALT (16-63) U/L Alkaline Phosphatase (46-116) U/L C-Reactive Protein 2.6 H* (<1.0) mg/dL Total Protein (6.4-8.2) g/dl Albumin (3.4-5.0) g/dl Globulin gm/dL Albumin/Globulin Ratio (1-2) 09/26/19 09/26/19 Range/Units 11:30 11:30 WBC (4.23-9.07) K/mm3 RBC (4.63-6.08) M/mm3 Hgb (13.7-17.5) gm/dl Hct (40.1-51.0) % MCV (79.0-92.2) fl MCH (25.7-32.2) pg MCHC (32.2-35.5) g/dl RDW Std Deviation (35.1-43.9) fL Plt Count (163-337) K/mm3 MPV (9.4-12.3) fl Neut % (Auto) (34.0-67.9) % Lymph % (Auto) (21.8-53.1) % [place] % (Auto) (5.3-12.2) % Eos % (Auto) (0.8-7.0) Baso % (Auto) (0.1-1.2) % Neut # (Auto) (1.78-5.38) K/mm3 Lymph # (Auto) (1.32-3.57) K/mm3 [place] # (Auto) (0.30-0.82) K/mm3 Eos # (Auto) (0.04-0.54) K/mm3 Baso # (Auto) (0.01-0.08) K/mm3 Manual Slide Review PT (9.7-12.0) SECONDS INR Sodium 135 L (136-145) mEq/L Potassium 3.8 (3.5-5.1) mEq/L Chloride 99 (98-107) mEq/L Carbon Dioxide 21 (21-32) mEq/L Anion Gap 18.8 H (5-15) BUN 34 H (7-18) mg/dL Creatinine 2.1 H (0.7-1.3) mg/dL Est Cr Clr Drug Dosing 31.38 mL/min Estimated GFR (MDRD) 31 (>60) mL/min BUN/Creatinine Ratio 16.2 (14-18) Glucose 437 H (83-115) mg/dL Lactic Acid 1.7 (0.4-2.0) mmol/L Calcium 9.4 (8.5-10.1) mg/dL Total Bilirubin 0.6 (0.2-1.0) mg/dL AST 16 (15-37) U/L ALT 34 (16-63) U/L Alkaline Phosphatase 97 (46-116) U/L C-Reactive Protein (<1.0) mg/dL Total Protein 7.5 (6.4-8.2) g/dl Albumin 3.6 (3.4-5.0) g/dl Globulin 3.9 gm/dL Albumin/Globulin Ratio 0.9 L (1-2) Meds: Medications Generic Name Dose Route Start Last Admin Trade Name Freq PRN Reason Stop Dose Admin Sodium Chloride 1,000 mls @ 999 mls/hr 09/26/19 11:00 09/26/19 11:19 Normal Saline IV 999 mls/hr ONETIME JANETT Administration Sodium Chloride 10 ml 09/26/19 10:52 09/26/19 11:19 Saline Flush FLUSH 10 ml ASDIRECTED PRN Administration Keep Vein Open Discontinued Medications Generic Name Dose Route Start Last Admin Trade Name Gray PRN Reason Stop Dose Admin Ceftriaxone Sodium 2 gm/ 100 mls @ 200 mls/hr 09/26/19 10:53 09/26/19 11:45 Sodium Chloride IV 09/26/19 11:22 200 mls/hr ONETIME ONE Administration - Re-Assessments/Exams Free Text/Narrative Re-Assessment/Exam: 09/26/19 12:58 white blood count 13,083 segs 8 lymphs 8 monos CO2 21 BUN 34 creatinine 2.1 lactic acid 1.7C reactive protein 2.6 glucose 137. I have reviewed the UA from [facility] which did show positive for leukocytes and nitrite. Also did have significant hematuria and continues to have significant hematuria with the Bonilla catheter drainage from the bladder. He does not appear septic at this time. He has been given rocephin 2 g IV, 1 L normal saline. Fore eleveated glucose he will be given insulin 10 units regular subcutaneous.He juancho be admitted to the floor for further treatment. Departure - Departure Time of Disposition: 13:01 Disposition: Home, Self-Care 01 Condition: Fair Clinical Impression: UTI, Urinary tract infectious disease, Hematuria, Renal insufficiency, Hyperglycemia - Discharge Information Referrals: Prudence Rowell PA-C [Primary Care Provider] - Forms: ED Department Discharge Sepsis Event Note - Evaluation Sepsis Screening Result: No Definite Risk - Focused Exam Vital Signs: Vital Signs Temp Pulse Resp BP Pulse Ox 09/26/19 10:13 98.0 F 103 H 18 148/97 H 98 Date Exam was Performed: 09/26/19 Time Exam was Performed: 12:56 ED Communication - Discussed Case With (1) Discussed Case With (1): Admitting Provider (Dr Varela, decision to admit at about 1300.) - My Orders Last 24 Hours: My Active Orders 09/26/19 10:51 Peripheral IV Insertion Pediatric [OM.PC] Routine 09/26/19 10:52 Peripheral IV Care [RC] . DIRECTED Sodium Chloride 0.9% [Saline Flush] 10 ml FLUSH ASDIRECTED PRN 09/26/19 10:54 CULTURE URINE [RM] Stat 09/26/19 11:00 Sodium Chloride 0.9% [Normal Saline] 1,000 ml IV ONETIME 09/26/19 12:56 KETONES,BLOOD [CHEM] Stat - Assessment/Plan Last 24 Hours: My Active Orders 09/26/19 10:51 Peripheral IV Insertion Pediatric [OM.PC] Routine 09/26/19 10:52 Peripheral IV Care [RC] . DIRECTED Sodium Chloride 0.9% [Saline Flush] 10 ml FLUSH ASDIRECTED PRN 09/26/19 10:54 CULTURE URINE [RM] Stat 09/26/19 11:00 Sodium Chloride 0.9% [Normal Saline] 1,000 ml IV ONETIME 09/26/19 12:56 KETONES,BLOOD [CHEM] Stat
[2019-09-26] MEDS ORDERED: Sodium Chloride 0.9% 1,000 ML IV SCH (11:00)
[2019-09-26] MEDS ORDERED: Insulin Regular, Human 100 Units/ML 3 ML Vial SUBCUT ONE (12:57)
[2019-09-26] MEDS ORDERED: Lactated Ringers 1,000 ML IV SCH ×2 (13:00→16:00)
[2019-09-26] MEDS ORDERED: Acetaminophen 325 MG Tab PO PRN (16:03)
--- NOTE | 2019-09-26 16:08 | PCM.HP.2 ---
H&P History of Present Illness - General Date of Service: 09/26/19 Admit Problem/Dx: Admission Diagnosis/Problem Admission Diagnosis/Problem Urinary tract infection - History of Present Illness Initial Comments - Free Text/Narative: 78-year-old male with history of urinary retention presented to [facility] with hematuria this morning. Patient states that approximately 2 weeks he started having difficulty ago with urination. He had some straight caths left over from a couple years ago when he had a similar issue and started to self catheterize. Patient was seen approximately 2 weeks ago by [facility] and an appointment was made for him to see urology at the end of October. Last night at approximately 1930 hrs. he first noted blood. It occurred again at 2300 hrs. and then this morning. Patient complains of some mild lower pelvic pain. Patient was then brought to the clinic where a urine dipstick was positive for nitrites and leukocytes. Patient had bonny bright red blood. Patient was tachycardic and there was concern about systemic infection and sepsis. Patient was sent to the emergency department where he was felt to be dehydrated. Fluids were started and antibiotics given. Patient has a past medical history for hypertension, renal insufficiency, BPH, urinary retention, GERD, hyperlipidemia, and psoriasis. A couple years back it was thought that patient might of had a PE and was on Eliquis at that time. Patient has been off Eliquis for 2 years now. He is not taking any antiplatelets or anticoagulants. He is not taking aspirin or Plavix. Laboratory studies in the emergency room: WBC 13.05, hemoglobin 13.1, platelets 253, PT 10.9, sodium 135, potassium 3.8, chloride 99, carbon dioxide 21, anion gap 18.8, BUN 34, creatinine 2.1, glucose 437, lactic acid 1.7, normal liver function and enzymes. Ketones 0.31. Review of estimated GFR ranges from 24-37 over the last 4 years. Patient is seen by nephrology. Patient denies history of diabetes, but on September 15, 2019 he did have a blood sugar of 369. November 14, 2017 blood sugar was 198. Unknown if either of these were fasting. Penis Pain Score (Numeric/FACES): 8 - Related Data Allergies/Adverse Reactions: Allergies Allergy/AdvReac Type Severity Reaction Status Date / Time No Known Allergies Allergy Verified 09/26/19 14:46 Home Medications: Home Meds Finasteride [Proscar] 5 mg PO QPM 11/29/16 [History] Omeprazole 20 mg PO BEDTIME 11/29/16 [History] Doxazosin [Cardura] 4 mg PO BEDTIME 11/30/16 [History] Pravastatin Sodium 40 mg PO QPM 11/30/16 [History] amLODIPine Besylate [Amlodipine Besylate] 5 mg PO QPM 09/26/19 [History] Past Medical History HEENT History: Reports: Impaired Vision, Other (See Below) Other HEENT History: upper bridge; wears glasses; dry mouth Cardiovascular History: Reports: High Cholesterol, Hypertension Respiratory History: Reports: SOB, Other (See Below) Other Respiratory History: was checked for PE, but patient stated it was negative Gastrointestinal History: Reports: GERD, Hemorrhoids, Other (See Below) Other Gastrointestinal History: "stomach hernia" Genitourinary History: Reports: Prostate Disorder, Renal Disease, Other (See Below) Other Genitourinary History: pt. stated he needed to straight cath several years ago, but then started voiding again Endocrine/Metabolic History: Reports: Other (See Below) Other Endocrine/Metabolic History: pt. states that BS was boardline at one time , but never fully diagnosed Dermatologic History: Reports: Psoriasis - Infectious Disease History Infectious Disease History: Reports: Chicken Pox, Measles - Past Surgical History HEENT Surgical History: Reports: Cataract Surgery Cardiovascular Surgical History: Reports: None, Percutaneous Transluminal Angioplasty Respiratory Surgical History: Reports: None GI Surgical History: Reports: Appendectomy, Cholecystectomy, Colonoscopy, Esophageal Dilatation Dermatological Surgical History: Reports: None Social & Family History - Family History Family Medical History: Noncontributory - Tobacco Use Smoking Status *Q: Never Smoker - Caffeine Use Caffeine Use: Reports: Coffee - Recreational Drug Use Recreational Drug Use: No H&P Review of Systems - Review of Systems: Review Of Systems: Comprehensive ROS is negative, except as noted in HPI. Exam - Exam Exam: See Below - Vital Signs Vital Signs: Last Vital Signs Temp 97.7 F 09/26/19 14:48 Pulse 91 09/26/19 14:48 Resp 16 09/26/19 14:48 BP 118/70 09/26/19 14:48 Pulse Ox 95 09/26/19 14:48 Weight: 200 lb 11.2 oz - Exam General: Alert, Oriented, 4 HEENT: Conjunctiva Clear, Hearing Intact, Mucosa Moist & High [place] Neck: Supple, Trachea Midline, 2 Lungs: Clear to Auscultation, Normal Respiratory Effort Cardiovascular: Regular Rate, Regular Rhythm GI/Abdominal Exam: Normal Bowel Sounds, Soft, No Distention, Tender (Mild suprapubic tenderness without guarding or rebound) Extremities: Normal Inspection, Normal Range of Motion, Non-Tender, No Pedal Edema Peripheral Pulses: 2+: Posterior Tibial (L), Posterior Tibial (R), Dorsalis Pedis (L), Dorsalis Pedis (R) Skin: Warm, Dry, Intact Neurological: Cranial Nerves Intact Neuro Extensive - Mental Status: Alert, Oriented x3, Normal Mood/Affect, Normal Cognition, Memory Intact Neuro Extensive - Motor, Sensory, Reflexes: CN II-XII Intact Psychiatric: Alert, Normal Affect, Normal Mood - Patient Data Lab Results Last 24 hrs: Laboratory Results - last 24 hr 09/26/19 09/26/19 09/26/19 Range/Units 11:30 11:30 11:30 WBC 13.05 H (4.23-9.07) K/mm3 RBC 4.51 L (4.63-6.08) M/mm3 Hgb 13.1 L (13.7-17.5) gm/dl Hct 38.7 L (40.1-51.0) % MCV 85.8 D (79.0-92.2) fl MCH 29.0 (25.7-32.2) pg MCHC 33.9 (32.2-35.5) g/dl RDW Std Deviation 40.2 (35.1-43.9) fL Plt Count 253 (163-337) K/mm3 MPV 10.4 (9.4-12.3) fl Neut % (Auto) 83.1 H (34.0-67.9) % Lymph % (Auto) 7.7 L (21.8-53.1) % [place] % (Auto) 8.4 (5.3-12.2) % Eos % (Auto) 0.3 L (0.8-7.0) Baso % (Auto) 0.2 (0.1-1.2) % Neut # (Auto) 10.84 H (1.78-5.38) K/mm3 Lymph # (Auto) 1.00 L (1.32-3.57) K/mm3 [place] # (Auto) 1.10 H (0.30-0.82) K/mm3 Eos # (Auto) 0.04 (0.04-0.54) K/mm3 Baso # (Auto) 0.03 (0.01-0.08) K/mm3 Manual Slide Review Abnormal smear PT 10.9 (9.7-12.0) SECONDS INR 1.00 Sodium (136-145) mEq/L Potassium (3.5-5.1) mEq/L Chloride (98-107) mEq/L Carbon Dioxide (21-32) mEq/L Anion Gap (5-15) BUN (7-18) mg/dL Creatinine (0.7-1.3) mg/dL Est Cr Clr Drug Dosing mL/min Estimated GFR (MDRD) (>60) mL/min BUN/Creatinine Ratio (14-18) Glucose (83-115) mg/dL Lactic Acid (0.4-2.0) mmol/L Calcium (8.5-10.1) mg/dL Total Bilirubin (0.2-1.0) mg/dL AST (15-37) U/L ALT (16-63) U/L Alkaline Phosphatase (46-116) U/L C-Reactive Protein 2.6 H* (<1.0) mg/dL Total Protein (6.4-8.2) g/dl Albumin (3.4-5.0) g/dl Globulin gm/dL Albumin/Globulin Ratio (1-2) Ketones (0.0-0.3) mM 09/26/19 09/26/19 09/26/19 Range/Units 11:30 11:30 11:30 WBC (4.23-9.07) K/mm3 RBC (4.63-6.08) M/mm3 Hgb (13.7-17.5) gm/dl Hct (40.1-51.0) % MCV (79.0-92.2) fl MCH (25.7-32.2) pg MCHC (32.2-35.5) g/dl RDW Std Deviation (35.1-43.9) fL Plt Count (163-337) K/mm3 MPV (9.4-12.3) fl Neut % (Auto) (34.0-67.9) % Lymph % (Auto) (21.8-53.1) % [place] % (Auto) (5.3-12.2) % Eos % (Auto) (0.8-7.0) Baso % (Auto) (0.1-1.2) % Neut # (Auto) (1.78-5.38) K/mm3 Lymph # (Auto) (1.32-3.57) K/mm3 [place] # (Auto) (0.30-0.82) K/mm3 Eos # (Auto) (0.04-0.54) K/mm3 Baso # (Auto) (0.01-0.08) K/mm3 Manual Slide Review PT (9.7-12.0) SECONDS INR Sodium 135 L (136-145) mEq/L Potassium 3.8 (3.5-5.1) mEq/L Chloride 99 (98-107) mEq/L Carbon Dioxide 21 (21-32) mEq/L Anion Gap 18.8 H (5-15) BUN 34 H (7-18) mg/dL Creatinine 2.1 H (0.7-1.3) mg/dL Est Cr Clr Drug Dosing 31.38 mL/min Estimated GFR (MDRD) 31 (>60) mL/min BUN/Creatinine Ratio 16.2 (14-18) Glucose 437 H (83-115) mg/dL Lactic Acid 1.7 (0.4-2.0) mmol/L Calcium 9.4 (8.5-10.1) mg/dL Total Bilirubin 0.6 (0.2-1.0) mg/dL AST 16 (15-37) U/L ALT 34 (16-63) U/L Alkaline Phosphatase 97 (46-116) U/L C-Reactive Protein (<1.0) mg/dL Total Protein 7.5 (6.4-8.2) g/dl Albumin 3.6 (3.4-5.0) g/dl Globulin 3.9 gm/dL Albumin/Globulin Ratio 0.9 L (1-2) Ketones 0.31 (0.0-0.3) mM Result Diagrams: 09/26/19 11:30 09/26/19 11:30 Sepsis Event Note - Evaluation Sepsis Screening Result: No Definite Risk - Focused Exam Vital Signs: Vital Signs Temp Pulse Resp BP Pulse Ox 09/26/19 14:48 97.7 F 91 16 118/70 95 09/26/19 10:13 98.0 F 103 H 18 148/97 H 98 Date Exam was Performed: 09/26/19 Time Exam was Performed: 17:06 Problem List Initiated/Reviewed/Updated: Yes Orders Last 24hrs: Active Orders 24 hr Category Date Time Status Patient Status [ADT] Routine ADT 09/26/19 13:39 Active Antiembolic Devices [RC] PER UNIT ROUTINE Care 09/26/19 16:05 Ordered Oxygen Therapy [RC] PRN Care 09/26/19 16:03 Ordered Peripheral IV Care [RC] . DIRECTED Care 09/26/19 10:52 Active Up ad Deana [RC] ASDIRECTED Care 09/26/19 16:03 Ordered VTE/DVT Education [RC] PER UNIT ROUTINE Care 09/26/19 16:03 Ordered Vital Signs [RC] Q4H Care 09/26/19 16:03 Ordered Consult to Diabetic Nurse Specialist [CONS] Routine Cons 09/26/19 16:03 Ordered ADA Diabetic [[place] [employer] Diet] [DIET Diet 09/26/19 Lunch Active ] CBC WITH AUTO DIFF [HEME] AM Lab 09/27/19 05:11 Ordered CBC WITH AUTO DIFF [HEME] AM Lab 09/28/19 05:11 Ordered CBC WITH AUTO DIFF [HEME] AM Lab 09/29/19 05:11 Ordered COMPREHENSIVE METABOLIC PN,CMP [CHEM] AM Lab 09/27/19 05:11 Ordered COMPREHENSIVE METABOLIC PN,CMP [CHEM] AM Lab 09/28/19 05:11 Ordered COMPREHENSIVE METABOLIC PN,CMP [CHEM] AM Lab 09/29/19 05:11 Ordered CULTURE BLOOD [BC] Stat Lab 09/26/19 11:30 Received CULTURE URINE [RM] Stat Lab 09/26/19 12:13 Received MAGNESIUM [CHEM] AM Lab 09/27/19 05:11 Ordered MAGNESIUM [CHEM] AM Lab 09/28/19 05:11 Ordered MAGNESIUM [CHEM] AM Lab 09/29/19 05:11 Ordered Acetaminophen [Tylenol] Med 09/26/19 16:03 Ordered 650 mg PO Q4H PRN Finasteride [Proscar] Med 09/26/19 18:00 Ordered 5 mg PO QPM Lactated Ringers @ 75 MLS/HR(1000ml Bag) Med 09/26/19 16:00 Ordered Lactated Ringers [Ringers, Lactated] 1,000 ml IV ASDIRECTED Lactated Ringers [Ringers, Lactated] 1,000 ml Med 09/26/19 13:00 Active IV ASDIRECTED Omeprazole [Omeprazole] Med 09/26/19 21:00 Ordered 20 mg PO BEDTIME Pravastatin Sodium [Pravastatin Sodium] Med 09/26/19 18:00 Ordered 40 mg PO QPM Sodium Chloride 0.9% [Normal Saline] 1,000 ml Med 09/26/19 11:00 Active IV ONETIME Sodium Chloride 0.9% [Saline Flush] Med 09/26/19 10:52 Active 10 ml FLUSH ASDIRECTED PRN amLODIPine [Norvasc] Med 09/26/19 18:00 Ordered 5 mg PO QPM cefTRIAXone [Rocephin] 1 gm Med 09/27/19 11:00 Ordered Sodium Chloride 0.9% [Normal Saline] 100 ml IV Q24H Antiembolic Hose [OM.PC] Per Unit Routine Oth 09/26/19 16:05 Ordered Peripheral IV Insertion Pediatric [OM.PC] Routine Oth 09/26/19 10:51 Ordered Resuscitation Status Routine Resus Stat 09/26/19 16:03 Ordered Medication Orders Acetaminophen (Tylenol) 650 mg PO Q4H PRN PRN Reason: Pain (Mild 1-3)/fever Amlodipine Besylate (Norvasc) 5 mg PO QPM JANETT Finasteride (Proscar) 5 mg PO QPM JANETT Sodium Chloride (Normal Saline) 1,000 mls @ 999 mls/hr IV ONETIME JANETT Last Admin: 09/26/19 11:19 Dose: 999 mls/hr Lactated Ringer's (Ringers, Lactated) 1,000 mls @ 150 mls/hr IV ASDIRECTED JANETT Last Admin: 09/26/19 13:10 Dose: 150 mls/hr Lactated Ringer's (Ringers, Lactated) 1,000 mls @ 75 mls/hr IV ASDIRECTED JANETT Ceftriaxone Sodium 1 gm/ (Sodium Chloride) 100 mls @ 200 mls/hr IV Q24H JANETT Non-Formulary Medication (Omeprazole [Omeprazole]) 20 mg PO BEDTIME JANETT Non-Formulary Medication (Pravastatin Sodium [Pravastatin Sodium]) 40 mg PO QPM JANETT Sodium Chloride (Saline Flush) 10 ml FLUSH ASDIRECTED PRN PRN Reason: Keep Vein Open Last Admin: 09/26/19 11:19 Dose: 10 ml Assessment/Plan Comment:: Assessment * Gross hematuria likely secondary to trauma from self catheterization * Urinary dipstick done at the clinic positive for nitrites and leukocytes * Given Rocephin 2 g IV in the emergency room * WBC 13, lactic acid 1.7 * New onset diabetes * Random glucose 137 * Ketones 0.31 * Stage III renal insufficiency -stable * BUN 34, creatinine 2.1, estimated GFR 31 * Urinary retention * Recently restarted self-catheterization * Appointment scheduled with urology at the end of October * History of hypertension, GERD, and BPH Plan * Admit to medical floor * CT abdomen pelvis * Continue Rocephin 1 g daily * Sliding scale insulin, start long-acting insulin * Bedside glucose monitoring 4 times daily * Culture urine * Blood cultures * LR at 75 mL an hour * Glycosylated hemoglobin and TSH * CBC, CMP, mag in the morning * Reconcile home meds * Consult diabetic education * VTE prophylaxis with compression stockings and ambulation * CODE STATUS: Full code - Mortality Measure Prognosis:: Good
[2019-09-26] MEDS ORDERED: Lactated Ringers 1,000 ML IV ONE (16:30)
[2019-09-26] MEDS ORDERED: 50% Dextrose in Water 50 ML Syringe IVPUSH PRN (17:04)
[2019-09-26] MEDS: Finasteride 5 MG Tab PO SCH (17:32)
[2019-09-26] MEDS: Simvastatin 20 MG Tab PO SCH (17:32)
[2019-09-26] MEDS: amLODIPine 5 MG Tab PO SCH (17:32)
[2019-09-26] MEDS ORDERED: Piperacillin/Tazobactam 4.5 GM in Sodium Chloride 0.9% 100 ML IV ONE (18:32)
[2019-09-26] MEDS: Pantoprazole 40 MG Tab.CR PO SCH (22:12)
[2019-09-26] MEDS: Insulin Lispro 100 Units/ML 3 ML Vial SUBCUT SCH (22:12)
[2019-09-27] MEDS: Piperacillin/Tazobactam 4.5 GM in Sodium Chloride 0.9% 100 ML IV SCH ×3 (01:55→18:23)
[2019-09-27] MEDS: Insulin Glarg,Human.Rec.Analog 100 Unit/ML SUBCUT SCH (08:17)
[2019-09-27] MEDS: Insulin Lispro 100 Units/ML 3 ML Vial SUBCUT SCH ×5 (08:18→21:17)
[2019-09-27 09:46] LABS: HEMOGLOBIN A1C 14.3 % (4.50-6.20)
[2019-09-27] MEDS ORDERED: Sodium Chloride 0.9% 10 ML Syringe FLUSH PRN (10:08)
[2019-09-27] MEDS ORDERED: cefTRIAXone 1 GM in Sodium Chloride 0.9% 100 ML IV SCH (11:00)
--- NOTE | 2019-09-27 11:22 | CT ---
CT abdomen and pelvis Technique: Multiple axial sections were obtained from above the dome of the diaphragm inferiorly through the pubic symphysis. Intravenous and oral contrast not utilized. Comparison: Prior right upper quadrant abdominal ultrasound of 09/09/13. Findings: Deformity within the left posterior rib is seen compatible with old healed fracture deformity. Mild associated pleural thickening is noted. Mild adjacent parenchymal scarring is also noted within the left lung base. Stomach is intrathoracic in position. Fluid and air are noted within the stomach. Noncontrast appearance of the liver shows no discrete abnormality. Spleen appears within normal limits. Surgical clips are seen from prior cholecystectomy. Pancreas appears normal. Small nonobstructing calculi are noted within the right kidney. Hyperdense exophytic cortical lesion is noted within the left kidney measuring 1.4 cm which is most likely due to small hemorrhagic cyst. Aorta shows atherosclerotic change without aneurysm. No retroperitoneal adenopathy or mesenteric abnormalities are seen. Small umbilical hernia is noted which contains a loop of small bowel. No small bowel dilatation is seen. Diverticuli are seen within the sigmoid colon without inflammatory change of diverticulitis. Bladder is diffusely abnormal. Bonilla catheter is in place. There is material within the bladder presumably representing blood. Air noted within the bladder lumen as well as within areas of the bladder wall. Difficult to exclude bladder injury or necrosis from tumor or emphysematous cystitis from infection. Bladder wall is diffusely thickened. There is increased haziness seen within the fat around the bladder. Appendix not visualized. Bone window settings were reviewed which show scattered degenerative change within the spine. No acute osseous finding is seen. Impression: 1. Diffusely abnormal bladder with wall thickening, increased density within the perivesical fat and intraluminal findings as well as intraluminal air and air within the bladder wall. 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 Bladder neoplasm is also a strong possibility. 2. Other multiple findings as noted above which are felt to be nonacute. Diagnostic code #9 This report was dictated in [place] Standard Time I agree with preliminary report from [facility], finalized on 09/26/19, 6:07 PM Central Time
--- NOTE | 2019-09-27 13:42 | PCM.PN ---
- General Info Date of Service: 09/27/19 Admission Dx/Problem (Free Text): Admission Diagnosis/Problem Admission Diagnosis/Problem Urinary tract infection Subjective Update: Patient is doing well. He is having decreasing amount of hematuria. No fever or chills. No abdominal pain. After CT of the abdomen pelvis results patient was switched to Zosyn. Functional Status: Reports: Pain Controlled - Review of Systems General: Reports: No Symptoms HEENT: Reports: No Symptoms Pulmonary: Reports: No Symptoms Cardiovascular: Reports: No Symptoms Gastrointestinal: Reports: No Symptoms Musculoskeletal: Reports: No Symptoms Skin: Reports: No Symptoms Neurological: Reports: No Symptoms - Patient Data Vitals - Most Recent: Last Vital Signs Temp 98.2 F 09/27/19 11:06 Pulse 78 09/27/19 11:06 Resp 14 09/27/19 11:06 BP 137/77 09/27/19 12:41 Pulse Ox 94 L 09/27/19 11:06 Weight - Most Recent: 200 lb 11.2 oz I&O - Last 24 Hours: Intake & Output 09/26/19 09/27/19 09/27/19 22:59 06:59 14:59 Intake Total 520 1667 210 Output Total 1500 1100 Balance -980 567 210 Lab Results Last 24 Hours: Laboratory Results - last 24 hr 09/26/19 09/26/19 09/26/19 Range/Units 11:30 16:12 21:35 WBC (4.23-9.07) K/mm3 RBC (4.63-6.08) M/mm3 Hgb (13.7-17.5) gm/dl Hct (40.1-51.0) % MCV (79.0-92.2) fl MCH (25.7-32.2) pg MCHC (32.2-35.5) g/dl RDW Std Deviation (35.1-43.9) fL Plt Count (163-337) K/mm3 MPV (9.4-12.3) fl Neut % (Auto) (34.0-67.9) % Lymph % (Auto) (21.8-53.1) % [place] % (Auto) (5.3-12.2) % Eos % (Auto) (0.8-7.0) Baso % (Auto) (0.1-1.2) % Neut # (Auto) (1.78-5.38) K/mm3 Lymph # (Auto) (1.32-3.57) K/mm3 [place] # (Auto) (0.30-0.82) K/mm3 Eos # (Auto) (0.04-0.54) K/mm3 Baso # (Auto) (0.01-0.08) K/mm3 Sodium (136-145) mEq/L Potassium (3.5-5.1) mEq/L Chloride (98-107) mEq/L Carbon Dioxide (21-32) mEq/L Anion Gap (5-15) BUN (7-18) mg/dL Creatinine (0.7-1.3) mg/dL Est Cr Clr Drug Dosing mL/min Estimated GFR (MDRD) (>60) mL/min BUN/Creatinine Ratio (14-18) Glucose (83-115) mg/dL POC Glucose 304 H (83-110) mg/dL Hemoglobin A1c (4.50-6.20) % Calcium (8.5-10.1) mg/dL Magnesium (1.8-2.4) mg/dl Total Bilirubin (0.2-1.0) mg/dL AST (15-37) U/L ALT (16-63) U/L Alkaline Phosphatase (46-116) U/L C-Reactive Protein (<1.0) mg/dL Total Protein (6.4-8.2) g/dl Albumin (3.4-5.0) g/dl Globulin gm/dL Albumin/Globulin Ratio (1-2) TSH 3rd Generation (0.358-3.74) uIU/mL Urine Color Red H (Yellow) Urine Appearance Turbid H (Clear) Urine pH 5.0 (5.0-8.0) Ur Specific [place] 1.015 (1.005-1.030) Urine Protein 3+ H (Negative) Urine Glucose (UA) 3+ H (Negative) Urine Ketones 1+ H (Negative) Urine Occult Blood 3+ H (Negative) Urine Nitrite Positive H (Negative) Urine Bilirubin 3+ H (Negative) Urine Urobilinogen 2.0 H (0.2-1.0) Ur Leukocyte Esterase 3+ H (Negative) Urine RBC Too numerous to cnt H (0-5) /hpf Urine WBC 30-40 H (0-5) /hpf Ur Squamous Epith Cells 0-5 (0-5) /hpf Urine Bacteria Few (FEW) /hpf Urine Mucus Not seen (FEW) /hpf Ketones 0.31 (0.0-0.3) mM 09/26/19 09/27/19 09/27/19 Range/Units 21:42 06:52 06:52 WBC 8.76 (4.23-9.07) K/mm3 RBC 3.86 L (4.63-6.08) M/mm3 Hgb 11.1 L D (13.7-17.5) gm/dl Hct 33.9 L (40.1-51.0) % MCV 87.8 (79.0-92.2) fl MCH 28.8 (25.7-32.2) pg MCHC 32.7 (32.2-35.5) g/dl RDW Std Deviation 40.9 (35.1-43.9) fL Plt Count 222 (163-337) K/mm3 MPV 10.6 (9.4-12.3) fl Neut % (Auto) 57.7 (34.0-67.9) % Lymph % (Auto) 27.2 (21.8-53.1) % [place] % (Auto) 9.4 (5.3-12.2) % Eos % (Auto) 4.9 (0.8-7.0) Baso % (Auto) 0.6 (0.1-1.2) % Neut # (Auto) 5.06 (1.78-5.38) K/mm3 Lymph # (Auto) 2.38 (1.32-3.57) K/mm3 [place] # (Auto) 0.82 (0.30-0.82) K/mm3 Eos # (Auto) 0.43 (0.04-0.54) K/mm3 Baso # (Auto) 0.05 (0.01-0.08) K/mm3 Sodium 138 (136-145) mEq/L Potassium 3.7 (3.5-5.1) mEq/L Chloride 105 (98-107) mEq/L Carbon Dioxide 22 (21-32) mEq/L Anion Gap 14.7 (5-15) BUN 24 H (7-18) mg/dL Creatinine 1.8 H (0.7-1.3) mg/dL Est Cr Clr Drug Dosing 36.60 mL/min Estimated GFR (MDRD) 37 (>60) mL/min BUN/Creatinine Ratio 13.3 L (14-18) Glucose 209 H (83-115) mg/dL POC Glucose 288 H (83-110) mg/dL Hemoglobin A1c (4.50-6.20) % Calcium 8.5 (8.5-10.1) mg/dL Magnesium 1.6 L (1.8-2.4) mg/dl Total Bilirubin 0.5 (0.2-1.0) mg/dL AST 11 L (15-37) U/L ALT 24 (16-63) U/L Alkaline Phosphatase 71 (46-116) U/L C-Reactive Protein 13.4 H* (<1.0) mg/dL Total Protein 6.1 L (6.4-8.2) g/dl Albumin 2.7 L (3.4-5.0) g/dl Globulin 3.4 gm/dL Albumin/Globulin Ratio 0.8 L (1-2) TSH 3rd Generation 1.566 (0.358-3.74) uIU/mL Urine Color (Yellow) Urine Appearance (Clear) Urine pH (5.0-8.0) Ur Specific [place] (1.005-1.030) Urine Protein (Negative) Urine Glucose (UA) (Negative) Urine Ketones (Negative) Urine Occult Blood (Negative) Urine Nitrite (Negative) Urine Bilirubin (Negative) Urine Urobilinogen (0.2-1.0) Ur Leukocyte Esterase (Negative) Urine RBC (0-5) /hpf Urine WBC (0-5) /hpf Ur Squamous Epith Cells (0-5) /hpf Urine Bacteria (FEW) /hpf Urine Mucus (FEW) /hpf Ketones (0.0-0.3) mM 09/27/19 09/27/19 09/27/19 Range/Units 06:52 06:59 10:59 WBC (4.23-9.07) K/mm3 RBC (4.63-6.08) M/mm3 Hgb (13.7-17.5) gm/dl Hct (40.1-51.0) % MCV (79.0-92.2) fl MCH (25.7-32.2) pg MCHC (32.2-35.5) g/dl RDW Std Deviation (35.1-43.9) fL Plt Count (163-337) K/mm3 MPV (9.4-12.3) fl Neut % (Auto) (34.0-67.9) % Lymph % (Auto) (21.8-53.1) % [place] % (Auto) (5.3-12.2) % Eos % (Auto) (0.8-7.0) Baso % (Auto) (0.1-1.2) % Neut # (Auto) (1.78-5.38) K/mm3 Lymph # (Auto) (1.32-3.57) K/mm3 [place] # (Auto) (0.30-0.82) K/mm3 Eos # (Auto) (0.04-0.54) K/mm3 Baso # (Auto) (0.01-0.08) K/mm3 Sodium (136-145) mEq/L Potassium (3.5-5.1) mEq/L Chloride (98-107) mEq/L Carbon Dioxide (21-32) mEq/L Anion Gap (5-15) BUN (7-18) mg/dL Creatinine (0.7-1.3) mg/dL Est Cr Clr Drug Dosing mL/min Estimated GFR (MDRD) (>60) mL/min BUN/Creatinine Ratio (14-18) Glucose (83-115) mg/dL POC Glucose 197 H 319 H (83-110) mg/dL Hemoglobin A1c 14.30 H (4.50-6.20) % Calcium (8.5-10.1) mg/dL Magnesium (1.8-2.4) mg/dl Total Bilirubin (0.2-1.0) mg/dL AST (15-37) U/L ALT (16-63) U/L Alkaline Phosphatase (46-116) U/L C-Reactive Protein (<1.0) mg/dL Total Protein (6.4-8.2) g/dl Albumin (3.4-5.0) g/dl Globulin gm/dL Albumin/Globulin Ratio (1-2) TSH 3rd Generation (0.358-3.74) uIU/mL Urine Color (Yellow) Urine Appearance (Clear) Urine pH (5.0-8.0) Ur Specific [place] (1.005-1.030) Urine Protein (Negative) Urine Glucose (UA) (Negative) Urine Ketones (Negative) Urine Occult Blood (Negative) Urine Nitrite (Negative) Urine Bilirubin (Negative) Urine Urobilinogen (0.2-1.0) Ur Leukocyte Esterase (Negative) Urine RBC (0-5) /hpf Urine WBC (0-5) /hpf Ur Squamous Epith Cells (0-5) /hpf Urine Bacteria (FEW) /hpf Urine Mucus (FEW) /hpf Ketones (0.0-0.3) mM Shon Results Last 24 Hours: Microbiology 09/26/19 12:13 Urine Culture - Preliminary Urine, Catheterized Gram Negative Rods 09/26/19 11:30 Anaerobic Blood Culture - Final Blood Med Orders - Current: Current Medications Acetaminophen (Tylenol) 650 mg PO Q4H PRN PRN Reason: Pain (Mild 1-3)/fever Amlodipine Besylate (Norvasc) 5 mg PO QPM [facility] Last Admin: 09/26/19 17:32 Dose: 5 mg Dextrose/Water (Dextrose 50% In Water) 50 ml IVPUSH ASDIRECTED PRN PRN Reason: Hypoglycemia Finasteride (Proscar) 5 mg PO QPM [facility] Last Admin: 09/26/19 17:32 Dose: 5 mg Ceftriaxone Sodium 1 gm/ (Sodium Chloride) 100 mls @ 200 mls/hr IV Q24H [facility] Last Admin: 09/27/19 10:20 Dose: 200 mls/hr Piperacillin Sod/Tazobactam (Sod 4.5 gm/ Sodium Chloride) 100 mls @ 25 mls/hr IV Q8H [facility] Last Admin: 09/27/19 11:01 Dose: 25 mls/hr Insulin Glargine (Lantus) 15 unit SUBCUT DAILY [facility] Last Admin: 09/27/19 08:17 Dose: 15 units Insulin Human Lispro (Humalog) 0 unit SUBCUT QIDACANDBED [facility]; Protocol Last Admin: 09/27/19 12:36 Dose: 8 units Pantoprazole Sodium (Protonix) 40 mg PO BEDTIME [facility] Last Admin: 09/26/19 22:12 Dose: 40 mg Simvastatin (Zocor) 20 mg PO QPM [facility] Last Admin: 09/26/19 17:32 Dose: 20 mg Sodium Chloride (Saline Flush) 10 ml FLUSH ASDIRECTED PRN PRN Reason: Keep Vein Open Last Admin: 09/26/19 11:19 Dose: 10 ml Sodium Chloride (Saline Flush) 10 ml FLUSH ASDIRECTED PRN PRN Reason: Keep Vein Open Discontinued Medications Ceftriaxone Sodium 2 gm/ (Sodium Chloride) 100 mls @ 200 mls/hr IV ONETIME ONE Stop: 09/26/19 11:22 Last Admin: 09/26/19 11:45 Dose: 200 mls/hr Sodium Chloride (Normal Saline) 1,000 mls @ 999 mls/hr IV ONETIME JANETT Last Admin: 09/26/19 11:19 Dose: 999 mls/hr Lactated Ringer's (Ringers, Lactated) 1,000 mls @ 150 mls/hr IV ASDIRECTED [facility]ANETT Last Admin: 09/26/19 13:10 Dose: 150 mls/hr Lactated Ringer's (Ringers, Lactated) 1,000 mls @ 75 mls/hr IV ASDIRECTED [facility] Lactated Ringer's (Ringers, Lactated) 1,000 mls @ 75 mls/hr IV ONETIME ONE Stop: 09/27/19 05:49 Last Admin: 09/26/19 17:31 Dose: 75 mls/hr Piperacillin Sod/Tazobactam (Sod 4.5 gm/ Sodium Chloride) 100 mls @ 200 mls/hr IV ONETIME ONE Stop: 09/26/19 19:01 Last Admin: 09/26/19 19:25 Dose: 200 mls/hr Insulin Human Regular (Humulin R) 10 unit SUBCUT ONETIME ONE Stop: 09/26/19 12:58 Last Admin: 09/26/19 13:11 Dose: 10 unit - Exam General: Alert, Oriented HEENT: Pupils Equal, Mucous Membr. Moist/[place] Neck: Supple Lungs: Clear to Auscultation, Normal Respiratory Effort Cardiovascular: Regular Rate, Regular Rhythm GI/Abdominal Exam: Normal Bowel Sounds, Soft, Non-Tender, No Organomegaly, No Distention Back Exam: Normal Inspection, Full Range of Motion Extremities: Normal Inspection, Normal Range of Motion, Non-Tender, No Pedal Edema, Normal Capillary Refill Skin: Warm, Dry, Intact Psy/Mental Status: Alert, Normal Affect, Normal Mood Sepsis Event Note - Evaluation Sepsis Screening Result: No Definite Risk - Focused Exam Vital Signs: Vital Signs Temp Pulse Resp BP Pulse Ox 09/27/19 12:41 137/77 09/27/19 11:06 98.2 F 78 14 141/122 H 94 L 09/27/19 07:20 97.9 F 85 16 113/60 94 L 09/27/19 04:36 98.1 F 72 19 112/55 L 95 09/27/19 01:50 98.1 F 85 17 108/58 L 92 L Date Exam was Performed: 09/27/19 Time Exam was Performed: 13:36 - Problem List Review Problem List Initiated/Reviewed/Updated: Yes - My Orders Last 24 Hours: My Active Orders 09/26/19 16:03 Oxygen Therapy [RC] PRN Up ad Deana [RC] BID VTE/DVT Education [RC] BID Vital Signs [RC] Q4H Consult to Diabetic Nurse Specialist [CONS] Routine Acetaminophen [Tylenol] 650 mg PO Q4H PRN Resuscitation Status Routine 09/26/19 16:05 Antiembolic Devices [RC] BID Antiembolic Hose [OM.PC] Per Unit Routine 09/26/19 17:04 Blood Glucose Check, Bedside [RC] QIDACANDBED Dextrose 50% in Water 50 ml IVPUSH ASDIRECTED PRN 09/26/19 18:00 Finasteride [Proscar] 5 mg PO QPM Simvastatin [Zocor] 20 mg PO QPM amLODIPine [Norvasc] 5 mg PO QPM 09/26/19 21:00 Pantoprazole [ProTONIX] 40 mg PO BEDTIME 09/26/19 22:00 Insulin Lispro [HumaLOG] See Protocol SUBCUT QIDACANDBED 09/27/19 02:30 Piperacillin/Tazobactam [Piperacil-Tazobact] 4.5 gm Sodium Chloride 0.9% [ Normal Saline] 100 ml IV Q8H 09/27/19 09:00 Insulin Glarg,Human.Rec.Analog [LantUS] 15 unit SUBCUT DAILY 09/27/19 10:08 Sodium Chloride 0.9% [Saline Flush] 10 ml FLUSH ASDIRECTED PRN Convert IV to Saline Lock [OM.PC] Routine 09/27/19 11:00 cefTRIAXone [Rocephin] 1 gm Sodium Chloride 0.9% [Normal Saline] 100 ml IV Q24H 09/28/19 05:11 C-REACTIVE PROTEIN [CHEM] AM CBC WITH AUTO DIFF [HEME] AM COMPREHENSIVE METABOLIC PN,CMP [CHEM] AM MAGNESIUM [CHEM] AM 09/29/19 05:11 C-REACTIVE PROTEIN [CHEM] AM CBC WITH AUTO DIFF [HEME] AM COMPREHENSIVE METABOLIC PN,CMP [CHEM] AM MAGNESIUM [CHEM] AM - Assessment Assessment:: CT abdomen and pelvis: 1. Diffusely abnormal bladder with wall thickening, increased density within the perivesical fat and intraluminal findings as well as intraluminal air and air within the bladder wall. 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 Bladder neoplasm is also a strong possibility. - Plan Plan:: Assessment * Gross hematuria likely secondary to trauma from self catheterization * Urinary dipstick done at the clinic positive for nitrites and leukocytes * Given Rocephin 2 g IV in the emergency room * WBC 13-->8.76, lactic acid 1.7 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 * New onset diabetes * Random glucose 437 * Ketones 0.31 * Hemoglobin A1c 14.3 * [employer] education on Sunday * Stage III renal insufficiency -stable * BUN 34, creatinine 2.1, estimated GFR 31 * Urinary retention * Recently restarted self-catheterization * Appointment scheduled with urology at the end of October * History of hypertension, GERD, and BPH Plan * Admit to medical floor * CT abdomen pelvis * Continue Rocephin 1 g daily and Zosyn * Sliding scale insulin, long-acting insulin, start mealtime insulin * Bedside glucose monitoring 4 times daily * Culture urine - gram-negative rods * Blood cultures * Stop IV fluids * Glycosylated hemoglobin and TSH * CBC, CMP, mag in the morning * Reconcile home meds * Consult diabetic education * VTE prophylaxis with compression stockings and ambulation * CODE STATUS: Full code
[2019-09-27] MEDS: amLODIPine 5 MG Tab PO SCH (18:20)
[2019-09-27] MEDS: Simvastatin 20 MG Tab PO SCH (18:21)
[2019-09-27] MEDS: Finasteride 5 MG Tab PO SCH (18:21)
[2019-09-27] MEDS: Pantoprazole 40 MG Tab.CR PO SCH (21:17)
[2019-09-28] MEDS: Piperacillin/Tazobactam 4.5 GM in Sodium Chloride 0.9% 100 ML IV SCH ×3 (01:57→19:58)
[2019-09-28] MEDS: cefTRIAXone 1 GM in Sodium Chloride 0.9% 100 ML IV SCH (08:19)
[2019-09-28] MEDS: Insulin Lispro 100 Units/ML 3 ML Vial SUBCUT SCH ×7 (08:24→21:59)
[2019-09-28] MEDS: Insulin Glarg,Human.Rec.Analog 100 Unit/ML SUBCUT SCH (08:26)
--- NOTE | 2019-09-28 16:51 | PCM.PN ---
- General Info Date of Service: 09/28/19 Admission Dx/Problem (Free Text): Admission Diagnosis/Problem Admission Diagnosis/Problem Urinary tract infection Subjective Update: Patient states he continues to feel well. He did have difficulty with clotting off of his Bonilla catheter and it required replacement. When they did so they got 1200 mL of urine out this morning. Urine continues to be bloody. Functional Status: Reports: Pain Controlled - Review of Systems General: Reports: No Symptoms HEENT: Reports: No Symptoms Pulmonary: Reports: No Symptoms Cardiovascular: Reports: No Symptoms Gastrointestinal: Reports: No Symptoms Genitourinary: Reports: Hematuria Musculoskeletal: Reports: No Symptoms - Patient Data Vitals - Most Recent: Last Vital Signs Temp 97.9 F 09/28/19 14:58 Pulse 81 09/28/19 14:58 Resp 16 09/28/19 14:58 BP 115/92 H 09/28/19 14:58 Pulse Ox 97 09/28/19 15:22 Weight - Most Recent: 202 lb 9.6 oz I&O - Last 24 Hours: Intake & Output 09/28/19 09/28/19 09/28/19 06:59 14:59 22:59 Intake Total 400 1420 100 Output Total 1925 900 Balance -1525 520 100 Lab Results Last 24 Hours: Laboratory Results - last 24 hr 09/27/19 09/27/19 09/28/19 Range/Units 17:37 21:01 06:25 WBC 10.56 H (4.23-9.07) K/mm3 RBC 3.75 L (4.63-6.08) M/mm3 Hgb 11.1 L (13.7-17.5) gm/dl Hct 32.6 L (40.1-51.0) % MCV 86.9 (79.0-92.2) fl MCH 29.6 (25.7-32.2) pg MCHC 34.0 (32.2-35.5) g/dl RDW Std Deviation 41.1 (35.1-43.9) fL Plt Count 211 (163-337) K/mm3 MPV 10.7 (9.4-12.3) fl Neut % (Auto) 66.6 (34.0-67.9) % Lymph % (Auto) 20.2 L (21.8-53.1) % [place] % (Auto) 7.1 (5.3-12.2) % Eos % (Auto) 5.6 (0.8-7.0) Baso % (Auto) 0.5 (0.1-1.2) % Neut # (Auto) 7.04 H (1.78-5.38) K/mm3 Lymph # (Auto) 2.13 (1.32-3.57) K/mm3 [place] # (Auto) 0.75 (0.30-0.82) K/mm3 Eos # (Auto) 0.59 H (0.04-0.54) K/mm3 Baso # (Auto) 0.05 (0.01-0.08) K/mm3 Sodium (136-145) mEq/L Potassium (3.5-5.1) mEq/L Chloride (98-107) mEq/L Carbon Dioxide (21-32) mEq/L Anion Gap (5-15) BUN (7-18) mg/dL Creatinine (0.7-1.3) mg/dL Est Cr Clr Drug Dosing mL/min Estimated GFR (MDRD) (>60) mL/min BUN/Creatinine Ratio (14-18) Glucose (83-115) mg/dL POC Glucose 240 H 318 H (83-110) mg/dL Calcium (8.5-10.1) mg/dL Magnesium (1.8-2.4) mg/dl Total Bilirubin (0.2-1.0) mg/dL AST (15-37) U/L ALT (16-63) U/L Alkaline Phosphatase (46-116) U/L C-Reactive Protein (<1.0) mg/dL Total Protein (6.4-8.2) g/dl Albumin (3.4-5.0) g/dl Globulin gm/dL Albumin/Globulin Ratio (1-2) 09/28/19 09/28/19 09/28/19 Range/Units 06:25 06:45 11:00 WBC (4.23-9.07) K/mm3 RBC (4.63-6.08) M/mm3 Hgb (13.7-17.5) gm/dl Hct (40.1-51.0) % MCV (79.0-92.2) fl MCH (25.7-32.2) pg MCHC (32.2-35.5) g/dl RDW Std Deviation (35.1-43.9) fL Plt Count (163-337) K/mm3 MPV (9.4-12.3) fl Neut % (Auto) (34.0-67.9) % Lymph % (Auto) (21.8-53.1) % [place] % (Auto) (5.3-12.2) % Eos % (Auto) (0.8-7.0) Baso % (Auto) (0.1-1.2) % Neut # (Auto) (1.78-5.38) K/mm3 Lymph # (Auto) (1.32-3.57) K/mm3 [place] # (Auto) (0.30-0.82) K/mm3 Eos # (Auto) (0.04-0.54) K/mm3 Baso # (Auto) (0.01-0.08) K/mm3 Sodium 139 (136-145) mEq/L Potassium 3.9 (3.5-5.1) mEq/L Chloride 106 (98-107) mEq/L Carbon Dioxide 23 (21-32) mEq/L Anion Gap 13.9 (5-15) BUN 28 H (7-18) mg/dL Creatinine 1.8 H (0.7-1.3) mg/dL Est Cr Clr Drug Dosing 36.60 mL/min Estimated GFR (MDRD) 37 (>60) mL/min BUN/Creatinine Ratio 15.6 (14-18) Glucose 192 H (83-115) mg/dL POC Glucose 190 H 193 H (83-110) mg/dL Calcium 9.0 (8.5-10.1) mg/dL Magnesium 1.6 L (1.8-2.4) mg/dl Total Bilirubin 0.4 (0.2-1.0) mg/dL AST 13 L (15-37) U/L ALT 19 (16-63) U/L Alkaline Phosphatase 63 (46-116) U/L C-Reactive Protein 7.0 H* (<1.0) mg/dL Total Protein 6.2 L (6.4-8.2) g/dl Albumin 2.7 L (3.4-5.0) g/dl Globulin 3.5 gm/dL Albumin/Globulin Ratio 0.8 L (1-2) Shon Results Last 24 Hours: Microbiology 09/26/19 11:30 Aerobic Blood Culture - Preliminary Blood NO GROWTH AFTER 2 DAYS Anaerobic Blood Culture - Final 09/26/19 12:13 Urine Culture - Preliminary Urine, Catheterized Gram Negative Rods Med Orders - Current: Current Medications Acetaminophen (Tylenol) 650 mg PO Q4H PRN PRN Reason: Pain (Mild 1-3)/fever Amlodipine Besylate (Norvasc) 5 mg PO QPM [facility] Last Admin: 09/27/19 18:20 Dose: 5 mg Dextrose/Water (Dextrose 50% In Water) 50 ml IVPUSH ASDIRECTED PRN PRN Reason: Hypoglycemia Finasteride (Proscar) 5 mg PO QPM [facility] Last Admin: 09/27/19 18:21 Dose: 5 mg Piperacillin Sod/Tazobactam (Sod 4.5 gm/ Sodium Chloride) 100 mls @ 25 mls/hr IV Q8H [facility] Last Admin: 09/28/19 09:40 Dose: 25 mls/hr Ceftriaxone Sodium 1 gm/ (Sodium Chloride) 100 mls @ 200 mls/hr IV Q24H [facility] Last Admin: 09/28/19 08:19 Dose: 200 mls/hr Insulin Glargine (Lantus) 18 unit SUBCUT DAILY [facility] Insulin Human Lispro (Humalog) 0 unit SUBCUT QIDACANDBED [facility]; Protocol Last Admin: 09/28/19 12:21 Dose: 2 units Insulin Human Lispro (Humalog) 5 unit SUBCUT TIDAC [facility] Last Admin: 09/28/19 12:23 Dose: 5 units Pantoprazole Sodium (Protonix) 40 mg PO BEDTIME [facility] Last Admin: 09/27/19 21:17 Dose: 40 mg Simvastatin (Zocor) 20 mg PO QPM [facility] Last Admin: 09/27/19 18:21 Dose: 20 mg Sodium Chloride (Saline Flush) 10 ml FLUSH ASDIRECTED PRN PRN Reason: Keep Vein Open Last Admin: 09/26/19 11:19 Dose: 10 ml Sodium Chloride (Saline Flush) 10 ml FLUSH ASDIRECTED PRN PRN Reason: Keep Vein Open Discontinued Medications Ceftriaxone Sodium 2 gm/ (Sodium Chloride) 100 mls @ 200 mls/hr IV ONETIME ONE Stop: 09/26/19 11:22 Last Admin: 09/26/19 11:45 Dose: 200 mls/hr Sodium Chloride (Normal Saline) 1,000 mls @ 999 mls/hr IV ONETIME [facility] Last Admin: 09/26/19 11:19 Dose: 999 mls/hr Lactated Ringer's (Ringers, Lactated) 1,000 mls @ 150 mls/hr IV ASDIRECTED [facility] Last Admin: 09/26/19 13:10 Dose: 150 mls/hr Lactated Ringer's (Ringers, Lactated) 1,000 mls @ 75 mls/hr IV ASDIRECTED [facility] Ceftriaxone Sodium 1 gm/ (Sodium Chloride) 100 mls @ 200 mls/hr IV Q24H [facility] Last Admin: 09/27/19 10:20 Dose: 200 mls/hr Lactated Ringer's (Ringers, Lactated) 1,000 mls @ 75 mls/hr IV ONETIME ONE Stop: 09/27/19 05:49 Last Admin: 09/26/19 17:31 Dose: 75 mls/hr Piperacillin Sod/Tazobactam (Sod 4.5 gm/ Sodium Chloride) 100 mls @ 200 mls/hr IV ONETIME ONE Stop: 09/26/19 19:01 Last Admin: 09/26/19 19:25 Dose: 200 mls/hr Insulin Glargine (Lantus) 15 unit SUBCUT DAILY [facility] Last Admin: 09/28/19 08:26 Dose: 15 units Insulin Human Regular (Humulin R) 10 unit SUBCUT ONETIME ONE Stop: 09/26/19 12:58 Last Admin: 09/26/19 13:11 Dose: 10 unit - Exam Quality Assessment: Urine Catheter General: Alert, Oriented HEENT: Pupils Equal, Mucous Membr. Moist/[place] Neck: Supple Lungs: Clear to Auscultation, Normal Respiratory Effort Cardiovascular: Regular Rate, Regular Rhythm GI/Abdominal Exam: Normal Bowel Sounds, Soft, Non-Tender, No Distention, No Abnormal Bruit, No Mass Extremities: Normal Inspection, Normal Range of Motion, Non-Tender, No Pedal Edema Skin: Warm, Dry, Intact Psy/Mental Status: Alert, Normal Affect, Normal Mood Sepsis Event Note - Evaluation Sepsis Screening Result: No Definite Risk - Focused Exam Vital Signs: Vital Signs Temp Pulse Resp BP Pulse Ox Pulse Ox 09/28/19 15:22 97 09/28/19 14:58 97.9 F 81 16 115/92 H 97 09/28/19 12:26 98.1 F 78 16 128/68 98 09/28/19 07:26 97.9 F 81 20 114/58 L 92 L 09/28/19 05:55 98.1 F 81 17 129/82 94 L Date Exam was Performed: 09/28/19 Time Exam was Performed: 16:53 - Problem List Review Problem List Initiated/Reviewed/Updated: Yes - My Orders Last 24 Hours: My Active Orders 09/27/19 17:00 Insulin Lispro [HumaLOG] 5 unit SUBCUT TIDAC 09/28/19 09:00 cefTRIAXone [Rocephin] 1 gm Sodium Chloride 0.9% [Normal Saline] 100 ml IV Q24H 09/29/19 05:11 C-REACTIVE PROTEIN [CHEM] AM CBC WITH AUTO DIFF [HEME] AM COMPREHENSIVE METABOLIC PN,CMP [CHEM] AM MAGNESIUM [CHEM] AM 09/29/19 09:00 Insulin Glarg,Human.Rec.Analog [LantUS] 18 unit SUBCUT DAILY - Assessment Assessment:: CT abdomen and pelvis: September 26, 2019 1. Diffusely abnormal bladder with wall thickening, increased density within the perivesical fat and intraluminal findings as well as intraluminal air and air within the bladder wall. 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 Bladder neoplasm is also a strong possibility. - Plan Plan:: Assessment * Gross hematuria likely secondary to trauma from self catheterization * Urinary dipstick done at the clinic positive for nitrites and leukocytes * Rocephin and Zosyn * WBC 13-->8.76-->10.6, CRP 2.6-->13.4-->7.0 * Worsening white count is likely secondary to stress response months secondary to distended bladder and not worsening of UTI. 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 * Culture urine - gram-negative rods * Blood cultures - prelim neg * New onset diabetes * Random glucose 437 * Ketones 0.31 * Hemoglobin A1c 14.3 * Diabetic education on Sunday * Lantus 18 units daily, Humalog 5 units qac, SSI * Stage III renal insufficiency -stable * BUN 34-->28, creatinine 2.1-->1.8, estimated GFR 31-->37 * Urinary retention * Recently restarted self-catheterization * Appointment scheduled with urology at the end of October * History of hypertension, GERD, and BPH Plan * Admit to medical floor * CT abdomen pelvis in am for follow up * Continue Rocephin 1 g daily and Zosyn * Bedside glucose monitoring 4 times daily * CBC, CMP, mag in the morning * Consult diabetic education * VTE prophylaxis with compression stockings and ambulation * CODE STATUS: Full code
[2019-09-28] MEDS: Finasteride 5 MG Tab PO SCH (17:20)
[2019-09-28] MEDS: Simvastatin 20 MG Tab PO SCH (17:20)
[2019-09-28] MEDS: amLODIPine 5 MG Tab PO SCH (17:20)
[2019-09-28] MEDS ORDERED: Magnesium Sulfate/Water 4 GM in Premix Bag 1 BAG IV ONE (20:00)
[2019-09-28] MEDS: Pantoprazole 40 MG Tab.CR PO SCH (20:01)
[2019-09-29] MEDS: Piperacillin/Tazobactam 4.5 GM in Sodium Chloride 0.9% 100 ML IV SCH ×2 (04:40→12:31)
[2019-09-29] MEDS: Insulin Glarg,Human.Rec.Analog 100 Unit/ML SUBCUT SCH (08:12)
[2019-09-29] MEDS: Insulin Lispro 100 Units/ML 3 ML Vial SUBCUT SCH ×7 (08:13→22:14)
[2019-09-29] MEDS: cefTRIAXone 1 GM in Sodium Chloride 0.9% 100 ML IV SCH (08:46)
--- NOTE | 2019-09-29 12:07 | CT ---
CT abdomen and pelvis Technique: Multiple axial sections were obtained from above the dome of the diaphragm inferiorly through the pubic symphysis. Intravenous and oral contrast not utilized. Comparison: Prior CT abdomen and pelvis study of 09/26/19. Findings: Appearance of the bladder has significantly improved from prior exam. Diffuse bladder wall thickening is seen but previous air within the bladder wall has cleared. There is only minimal air remaining within the lumen of the bladder. Bonilla catheter remains in place. Visualized lung bases show nothing acute. Stomach remains intrathoracic in position. Liver contains no focal abnormality. Spleen appears normal in size. Pancreas is normal. Surgical clips seen from prior cholecystectomy. Adrenal glands show no nodule. Kidney show small calcifications most likely due to nonobstructing calculi. Kidney show no hydronephrosis. No ureteral dilatation or ureteral stone is seen. Aorta shows atherosclerotic change without aneurysm. No retroperitoneal adenopathy or mesenteric abnormalities are seen. Fat-containing umbilical hernia which also contains a loop of small bowel which shows no incarceration. Diverticulosis noted within the sigmoid colon without diverticulitis. Bone window settings show no acute osseous finding with previously described findings again noted noted. Impression: 1. Significantly improved bladder when compared to prior exam. Small amount of intraluminal air remains within the bladder. Diffuse bladder wall thickening is noted. Bonilla catheter remains in place. 2. Other portions of the noncontrast CT study of the abdomen and pelvis appears unchanged from previous exam. Diagnostic code #2 This report was dictated in [place] Standard Time
--- NOTE | 2019-09-29 13:40 | PCM.PN ---
- General Info Date of Service: 09/29/19 Admission Dx/Problem (Free Text): Admission Diagnosis/Problem Admission Diagnosis/Problem Urinary tract infection Subjective Update: Patient continues to improve. Urine is much less erythematous and now terrie. Functional Status: Reports: Pain Controlled - Review of Systems General: Reports: No Symptoms HEENT: Reports: No Symptoms Pulmonary: Reports: No Symptoms Cardiovascular: Reports: No Symptoms Genitourinary: Denies: Pain Musculoskeletal: Reports: No Symptoms - Patient Data Vitals - Most Recent: Last Vital Signs Temp 97.5 F 09/29/19 12:14 Pulse 68 09/29/19 12:14 Resp 20 09/29/19 12:14 BP 126/97 H 09/29/19 12:14 Pulse Ox 96 09/29/19 12:14 Weight - Most Recent: 201 lb 4.8 oz I&O - Last 24 Hours: Intake & Output 09/28/19 09/29/19 09/29/19 22:59 06:59 14:59 Intake Total 750 1200 180 Output Total 2150 Balance 750 -950 180 Lab Results Last 24 Hours: Laboratory Results - last 24 hr 09/28/19 09/28/19 09/29/19 Range/Units 16:52 21:56 05:27 WBC 8.22 (4.23-9.07) K/mm3 RBC 3.69 L (4.63-6.08) M/mm3 Hgb 10.9 L (13.7-17.5) gm/dl Hct 32.6 L (40.1-51.0) % MCV 88.3 (79.0-92.2) fl MCH 29.5 (25.7-32.2) pg MCHC 33.4 (32.2-35.5) g/dl RDW Std Deviation 41.9 (35.1-43.9) fL Plt Count 225 (163-337) K/mm3 MPV 10.9 (9.4-12.3) fl Neut % (Auto) 53.3 (34.0-67.9) % Lymph % (Auto) 29.8 (21.8-53.1) % [place] % (Auto) 8.3 (5.3-12.2) % Eos % (Auto) 7.7 H (0.8-7.0) Baso % (Auto) 0.9 (0.1-1.2) % Neut # (Auto) 4.39 (1.78-5.38) K/mm3 Lymph # (Auto) 2.45 (1.32-3.57) K/mm3 [place] # (Auto) 0.68 (0.30-0.82) K/mm3 Eos # (Auto) 0.63 H (0.04-0.54) K/mm3 Baso # (Auto) 0.07 (0.01-0.08) K/mm3 Sodium (136-145) mEq/L Potassium (3.5-5.1) mEq/L Chloride (98-107) mEq/L Carbon Dioxide (21-32) mEq/L Anion Gap (5-15) BUN (7-18) mg/dL Creatinine (0.7-1.3) mg/dL Est Cr Clr Drug Dosing mL/min Estimated GFR (MDRD) (>60) mL/min BUN/Creatinine Ratio (14-18) Glucose (83-115) mg/dL POC Glucose 245 H 224 H (83-110) mg/dL Calcium (8.5-10.1) mg/dL Magnesium (1.8-2.4) mg/dl Total Bilirubin (0.2-1.0) mg/dL AST (15-37) U/L ALT (16-63) U/L Alkaline Phosphatase (46-116) U/L C-Reactive Protein (<1.0) mg/dL Total Protein (6.4-8.2) g/dl Albumin (3.4-5.0) g/dl Globulin gm/dL Albumin/Globulin Ratio (1-2) 09/29/19 09/29/19 09/29/19 Range/Units 05:27 06:46 10:58 WBC (4.23-9.07) K/mm3 RBC (4.63-6.08) M/mm3 Hgb (13.7-17.5) gm/dl Hct (40.1-51.0) % MCV (79.0-92.2) fl MCH (25.7-32.2) pg MCHC (32.2-35.5) g/dl RDW Std Deviation (35.1-43.9) fL Plt Count (163-337) K/mm3 MPV (9.4-12.3) fl Neut % (Auto) (34.0-67.9) % Lymph % (Auto) (21.8-53.1) % [place] % (Auto) (5.3-12.2) % Eos % (Auto) (0.8-7.0) Baso % (Auto) (0.1-1.2) % Neut # (Auto) (1.78-5.38) K/mm3 Lymph # (Auto) (1.32-3.57) K/mm3 [place] # (Auto) (0.30-0.82) K/mm3 Eos # (Auto) (0.04-0.54) K/mm3 Baso # (Auto) (0.01-0.08) K/mm3 Sodium 141 (136-145) mEq/L Potassium 3.5 (3.5-5.1) mEq/L Chloride 107 (98-107) mEq/L Carbon Dioxide 23 (21-32) mEq/L Anion Gap 14.5 (5-15) BUN 23 H (7-18) mg/dL Creatinine 1.8 H (0.7-1.3) mg/dL Est Cr Clr Drug Dosing 36.60 mL/min Estimated GFR (MDRD) 37 (>60) mL/min BUN/Creatinine Ratio 12.8 L (14-18) Glucose 172 H (83-115) mg/dL POC Glucose 151 H 184 H (83-110) mg/dL Calcium 9.1 (8.5-10.1) mg/dL Magnesium 2.3 (1.8-2.4) mg/dl Total Bilirubin 0.3 (0.2-1.0) mg/dL AST 14 L (15-37) U/L ALT 17 (16-63) U/L Alkaline Phosphatase 61 (46-116) U/L C-Reactive Protein 3.9 H* (<1.0) mg/dL Total Protein 6.4 (6.4-8.2) g/dl Albumin 2.7 L (3.4-5.0) g/dl Globulin 3.7 gm/dL Albumin/Globulin Ratio 0.7 L (1-2) Shon Results Last 24 Hours: Microbiology 09/26/19 12:13 Urine Culture - Preliminary Urine, Catheterized Escherichia Coli 09/26/19 11:30 Aerobic Blood Culture - Preliminary Blood NO GROWTH AFTER 2 DAYS Anaerobic Blood Culture - Final Med Orders - Current: Current Medications Acetaminophen (Tylenol) 650 mg PO Q4H PRN PRN Reason: Pain (Mild 1-3)/fever Amlodipine Besylate (Norvasc) 5 mg PO QPM [facility] Last Admin: 09/28/19 17:20 Dose: 5 mg Dextrose/Water (Dextrose 50% In Water) 50 ml IVPUSH ASDIRECTED PRN PRN Reason: Hypoglycemia Finasteride (Proscar) 5 mg PO QPM [facility] Last Admin: 09/28/19 17:20 Dose: 5 mg Ceftriaxone Sodium 1 gm/ (Sodium Chloride) 100 mls @ 200 mls/hr IV Q24H [facility] Last Admin: 09/29/19 08:46 Dose: 200 mls/hr Insulin Glargine (Lantus) 18 unit SUBCUT DAILY [facility] Last Admin: 09/29/19 08:12 Dose: 18 units Insulin Human Lispro (Humalog) 0 unit SUBCUT QIDACANDBED [facility]; Protocol Last Admin: 09/29/19 12:18 Dose: 2 units Insulin Human Lispro (Humalog) 5 unit SUBCUT TIDAC [facility] Last Admin: 09/29/19 12:19 Dose: 5 units Pantoprazole Sodium (Protonix) 40 mg PO BEDTIME [facility] Last Admin: 09/28/19 20:01 Dose: 40 mg Simvastatin (Zocor) 20 mg PO QPM [facility] Last Admin: 09/28/19 17:20 Dose: 20 mg Sodium Chloride (Saline Flush) 10 ml FLUSH ASDIRECTED PRN PRN Reason: Keep Vein Open Last Admin: 09/26/19 11:19 Dose: 10 ml Sodium Chloride (Saline Flush) 10 ml FLUSH ASDIRECTED PRN PRN Reason: Keep Vein Open Discontinued Medications Ceftriaxone Sodium 2 gm/ (Sodium Chloride) 100 mls @ 200 mls/hr IV ONETIME ONE Stop: 09/26/19 11:22 Last Admin: 09/26/19 11:45 Dose: 200 mls/hr Sodium Chloride (Normal Saline) 1,000 mls @ 999 mls/hr IV ONETIME [facility] Last Admin: 09/26/19 11:19 Dose: 999 mls/hr Lactated Ringer's (Ringers, Lactated) 1,000 mls @ 150 mls/hr IV ASDIRECTED [facility] Last Admin: 09/26/19 13:10 Dose: 150 mls/hr Lactated Ringer's (Ringers, Lactated) 1,000 mls @ 75 mls/hr IV ASDIRECTED [facility] Ceftriaxone Sodium 1 gm/ (Sodium Chloride) 100 mls @ 200 mls/hr IV Q24H [facility] Last Admin: 09/27/19 10:20 Dose: 200 mls/hr Lactated Ringer's (Ringers, Lactated) 1,000 mls @ 75 mls/hr IV ONETIME ONE Stop: 09/27/19 05:49 Last Admin: 09/26/19 17:31 Dose: 75 mls/hr Piperacillin Sod/Tazobactam (Sod 4.5 gm/ Sodium Chloride) 100 mls @ 25 mls/hr IV Q8H [facility] Last Admin: 09/28/19 09:40 Dose: 25 mls/hr Piperacillin Sod/Tazobactam (Sod 4.5 gm/ Sodium Chloride) 100 mls @ 200 mls/hr IV ONETIME ONE Stop: 09/26/19 19:01 Last Admin: 09/26/19 19:25 Dose: 200 mls/hr Piperacillin Sod/Tazobactam (Sod 4.5 gm/ Sodium Chloride) 100 mls @ 25 mls/hr IV Q8H [facility] Last Admin: 09/29/19 12:31 Dose: 25 mls/hr Magnesium Sulfate 4 gm/ Premix 100 mls @ 25 mls/hr IV ONETIME ONE Stop: 09/28/19 20:01 Last Admin: 09/28/19 19:57 Dose: 25 mls/hr Insulin Glargine (Lantus) 15 unit SUBCUT DAILY [facility] Last Admin: 09/28/19 08:26 Dose: 15 units Insulin Human Regular (Humulin R) 10 unit SUBCUT ONETIME ONE Stop: 09/26/19 12:58 Last Admin: 09/26/19 13:11 Dose: 10 unit - Exam Quality Assessment: Urine Catheter ([place]-colored urine). No: Supplemental Oxygen General: Alert, Oriented HEENT: Pupils Equal Neck: Supple Lungs: Clear to Auscultation, Normal Respiratory Effort Cardiovascular: Regular Rate, Regular Rhythm GI/Abdominal Exam: Normal Bowel Sounds, Soft, Non-Tender, No Organomegaly, No Distention Sepsis Event Note - Evaluation Sepsis Screening Result: No Definite Risk - Focused Exam Vital Signs: Vital Signs Temp Pulse Resp BP Pulse Ox 09/29/19 12:14 97.5 F 68 20 126/97 H 96 09/29/19 08:03 98.4 F 72 16 122/62 96 09/29/19 04:47 97.7 F 117 H 18 136/81 96 Date Exam was Performed: 09/29/19 Time Exam was Performed: 13:33 - Problem List Review Problem List Initiated/Reviewed/Updated: Yes - My Orders Last 24 Hours: My Active Orders 09/28/19 17:44 Consult to Dietary [Consult to Elementary Assistant Principal] [CONS] Routine 09/29/19 09:00 Insulin Glarg,Human.Rec.Analog [LantUS] 18 unit SUBCUT DAILY - Assessment Assessment:: CT abdomen and pelvis: September 26, 2019 1. Diffusely abnormal bladder with wall thickening, increased density within the perivesical fat and intraluminal findings as well as intraluminal air and air within the bladder wall. 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 Bladder neoplasm is also a strong possibility. Repeat CT scan on 09/29/2019: 1. Significantly improved bladder when compared to prior exam. Small amounts of intraluminal air remains within the bladder. Diffuse bladder wall thickening is noted. Bonilla catheter remains in place. 2. Other portions of the noncontrast study of the abdomen and pelvis appears unchanged from previous exam. - Plan Plan:: Assessment * Gross hematuria likely secondary to trauma from self catheterization * Urinary dipstick done at the clinic positive for nitrites and leukocytes * WBC 13-->8.76-->10.6-->8.22, CRP 2.6-->13.4-->7.0-->3.9 * Worsening white count is likely secondary to stress response months secondary to distended bladder and not worsening of UTI. 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 coli are pansensitive * Blood cultures - prelim neg * New onset diabetes * Random glucose 437 * Ketones 0.31 * Hemoglobin A1c 14.3 * Diabetic education on Sunday * Lantus 18 units daily, Humalog 5 units qac, SSI * Blood sugars ranging 154-245 * Stage III renal insufficiency -stable * BUN 34-->28-->23, creatinine 2.1-->1.8-->1.8, * Urinary retention * Recently restarted self-catheterization * Appointment scheduled with urology at the end of October * History of hypertension, GERD, and BPH Plan * Admit to medical floor * CT abdomen pelvis in am for follow up * Continue Rocephin 1 g daily and stop Zosyn * Bedside glucose monitoring 4 times daily * Consult diabetic education * Continue urinary catheter * VTE prophylaxis with compression stockings and ambulation * CODE STATUS: Full code * Plan discharge in the morning
[2019-09-29] MEDS: Simvastatin 20 MG Tab PO SCH (17:14)
[2019-09-29] MEDS: Finasteride 5 MG Tab PO SCH (17:14)
[2019-09-29] MEDS: amLODIPine 5 MG Tab PO SCH (17:16)
[2019-09-29] MEDS: Pantoprazole 40 MG Tab.CR PO SCH (20:32)
[2019-09-30] MEDS ORDERED: Insulin Glarg,Human.Rec.Analog 100 Unit/ML SUBCUT SCH
[2019-09-30] MEDS ORDERED: Insulin Lispro 100 UNIT/ML 10 ML VIAL SUBCUT SCH
[2019-09-30] MEDS: Insulin Lispro 100 Units/ML 3 ML Vial SUBCUT SCH ×3 (07:03→11:26)
[2019-09-30] MEDS: cefTRIAXone 1 GM in Sodium Chloride 0.9% 100 ML IV SCH (08:29)
[2019-09-30] MEDS: Insulin Glarg,Human.Rec.Analog 100 Unit/ML SUBCUT SCH (08:36)
[2019-09-30] MEDS ORDERED: Insulin Lispro 100 Units/ML 3 ML Vial SUBCUT SCH (11:00)
[2019-09-30 12:26] VITALS: BP 128/55; PULSE 79
--- NOTE | 2019-09-30 13:50 | PCM.DCSUM1 ---
Discharge Summary - Hospital Course HPI Initial Comments: 78-year-old male with history of urinary retention presented to [facility] with hematuria this morning. Patient states that approximately 2 weeks he started having difficulty ago with urination. He had some straight caths left over from a couple years ago when he had a similar issue and started to self catheterize. Patient was seen approximately 2 weeks ago by [facility] and an appointment was made for him to see urology at the end of October. Last night at approximately 1930 hrs. he first noted blood. It occurred again at 2300 hrs. and then this morning. Patient complains of some mild lower pelvic pain. Patient was then brought to the clinic where a urine dipstick was positive for nitrites and leukocytes. Patient had bonny bright red blood. Patient was tachycardic and there was concern about systemic infection and sepsis. Patient was sent to the emergency department where he was felt to be dehydrated. Fluids were started and antibiotics given. Patient has a past medical history for hypertension, renal insufficiency, BPH, urinary retention, GERD, hyperlipidemia, and psoriasis. A couple years back it was thought that patient might of had a PE and was on Eliquis at that time. Patient has been off Eliquis for 2 years now. He is not taking any antiplatelets or anticoagulants. He is not taking aspirin or Plavix. Laboratory studies in the emergency room: WBC 13.05, hemoglobin 13.1, platelets 253, PT 10.9, sodium 135, potassium 3.8, chloride 99, carbon dioxide 21, anion gap 18.8, BUN 34, creatinine 2.1, glucose 437, lactic acid 1.7, normal liver function and enzymes. Ketones 0.31. Review of estimated GFR ranges from 24-37 over the last 4 years. Patient is seen by nephrology. Patient denies history of diabetes, but on September 15, 2019 he did have a blood sugar of 369. November 14, 2017 blood sugar was 198. Unknown if either of these were fasting. Diagnosis: Stroke: No - Discharge Data Discharge Date: 09/30/19 (Admit date: 09/26/19) Discharge Disposition: Home, Self-Care 01 Condition: Good - Referral to Home Health Primary Care Physician: Prudence Rowell PA-C - Discharge Diagnosis/Problem(s) (1) Hematuria SNOMED Code(s): 20450482 ICD Code: R31.9 - HEMATURIA, UNSPECIFIED Status: Acute Priority: High Current Visit: Yes Qualifiers: Hematuria type: unspecified type Qualified Code(s): R31.9 - Hematuria, unspecified (2) Hyperglycemia SNOMED Code(s): 75008448 ICD Code: R73.9 - HYPERGLYCEMIA, UNSPECIFIED Status: Acute Priority: High Current Visit: Yes (3) Renal insufficiency SNOMED Code(s): 350240991, 970922106 ICD Code: N28.9 - DISORDER OF KIDNEY AND URETER, UNSPECIFIED Status: Acute Priority: High Current Visit: Yes (4) UTI, Urinary tract infectious disease SNOMED Code(s): 92287598 ICD Code: N39.0 - URINARY TRACT INFECTION, SITE NOT SPECIFIED Status: Acute Priority: High Current Visit: Yes (5) Benign prostatic hypertrophy with urinary retention SNOMED Code(s): 053938035, 558728217864611 ICD Code: N40.1 - BENIGN PROSTATIC HYPERPLASIA WITH LOWER URINARY TRACT SYMP ; R33.8 - OTHER RETENTION OF URINE Status: Chronic Priority: High Current Visit: Yes (6) Diabetes mellitus, new onset SNOMED Code(s): 343525788, 598880971 ICD Code: E11.9 - TYPE 2 DIABETES MELLITUS WITHOUT COMPLICATIONS Status: Acute Priority: High Current Visit: Yes (7) Marshall catheter in place SNOMED Code(s): 464821026 ICD Code: Z96.0 - PRESENCE OF UROGENITAL IMPLANTS Status: Acute Priority : High Current Visit: Yes (8) Chronic renal insufficiency SNOMED Code(s): 516876260 ICD Code: N18.9 - CHRONIC KIDNEY DISEASE, UNSPECIFIED Status: Chronic Priority: Medium Current Visit: Yes Qualifiers: Chronic kidney disease stage: unspecified stage Qualified Code(s): N18.9 - Chronic kidney disease, unspecified (9) Hyperlipidemia SNOMED Code(s): 32401388 ICD Code: E78.5 - HYPERLIPIDEMIA, UNSPECIFIED Status: Chronic Priority: Low Current Visit: No Qualifiers: Hyperlipidemia type: unspecified Qualified Code(s): E78.5 - Hyperlipidemia , unspecified (10) Hypertension SNOMED Code(s): 24511885 ICD Code: I10 - ESSENTIAL (PRIMARY) HYPERTENSION Status: Chronic Priority : Medium Current Visit: No Qualifiers: Hypertension type: unspecified Qualified Code(s): I10 - Essential (primary ) hypertension (11) Urinary retention SNOMED Code(s): 900151314 ICD Code: R33.9 - RETENTION OF URINE, UNSPECIFIED Status: Chronic Priority: Medium Current Visit: Yes - Patient Summary/Data Consults: Consultations 09/26/19 16:03 Consult to Diabetic Nurse Specialist [CONS] Routine 09/28/19 17:44 Consult to Dietary [Consult to Service Observer] [CONS] Routine Labs Pending at D/C: None Recommended Follow-up Testing/Procedures: Follow-up with PCP within 5-7 days of discharge, sooner if needed. Follow-up with nephrology and urology as scheduled. Follow-up with knifeman as scheduled. Recommend follow-up with community educator. Hospital Course: Dontae was admitted to the floor with UTI and hyperglycemia. He has been noting urinary retention and states he was straight cathing at home prior to presenting to the [place] clinic. At that time a Marshall catheter was placed and there is noted to be blood in his urine. On prior presentation he had an appointment set up for urology at the end of October and he is followed by nephrology. UA was positive with E. coli and Klebsiella. Both of these were pansensitive. Culture obtained with this hospitalization should be ignored and urine culture from prior visit should be viewed. His urine did improve here and became straw-colored with occasional small blood clots. Abdominal CT obtained in the ED did show an abnormal bladder with wall thickening and perivisceral fat and intraluminal findings. Intraluminal air and air within the bladder wall were noted concerning for severe emphysematous cystitis or bladder neoplasm. Repeat CT was obtained 2 days later showing a significantly improved bladder when compared to prior exam. Small amount of intraluminal air remain in the bladder and diffuse bladder wall thickening was noted along with a Marshall catheter. Patient had been receiving IV Zosyn and Rocephin. Zosyn was eventually discontinued once urine cultures were back. Discussed antibiotic choice with Dr. Varela and decision was made to continue patient on 100 mg p.o. twice daily Ceftin for 5 more days, which would be a total of 10 days of treatment. He did receive a dose of IV Rocephin prior to discharge so he should begin his p.o. treatment on 10/01/2019. His blood sugar was noted to be very high in the 400s on admission. A1C was obtained and was very high at 14.30 %. Report that he eats significant carbohydrates and a very large quantity of ice cream weekly. He was started on 18 units of daily Lantus as well as pre- meal Humalog. Dosing for the Humalog was adjusted and ultimately 6 units per meal appeared to be the best dosing. He did see our community educator who provided him with a glucometer and test strips along with education. He was instructed to check his blood sugars 3 times a day and record them in a journal. He was instructed to hold his insulin dosing if he noticed blood sugars less than 60. He was instructed to contact his primary care provider. He did see our dietitian who gave him advice on proper eating. It is recommended he follow-up with dietitian and community educator after discharge. He was provided extensive education on diabetic complications and ideas for compliance. Home medications were otherwise continued with the exception of Cardura which was held due to his Marshall catheter being placed. He was discharged with a Marshall catheter and suggested he see urology prior to this being removed. He was prescribed Lantus 18 units and Humalog 6 units 3 times daily with meals as noted earlier. To be discharged today. He was instructed follow-up with his primary care provider within 5 to 7 days of discharge. - Patient Instructions Diet: Diabetic Diet Activity: As Tolerated Showering/Bathing: May Shower Notify Provider of: Fever, Increased Pain, Nausea and/or Vomiting Other/Special Instructions: Follow-up with primary care provider within 5-7 days of discharge, sooner if needed. Follow-up with urology and nephrology as scheduled. The marshall catheter should remain in place until removed by urology. Resume home medications as directed. We stopped your cardura while you have a marshall in place. Follow-up with knifeman as scheduled and community educator as directed. Marshall care as instructed by nursing. Take your blood sugars three times a day, before meals. Record these numbers in a journal and bring these with to all medical appointments, including your knifeman appointment and community educator appointment. You need to watch what you eat and follow the directions of the knifeman. You were provided information on this. If you not blood sugars less than 60, drink some orange juice, eat some toast, and hold your next dose of insulin. You should then contact your primary care provider. Should symptoms return or worsen, contact your primary care provider or return to the Emergency Department. - Discharge Plan *PRESCRIPTION DRUG MONITORING PROGRAM REVIEWED*: No *COPY OF PRESCRIPTION DRUG MONITORING REPORT IN PATIENT GAUTAM: No Prescriptions/Med Rec: Cefuroxime Axetil [Ceftin] 500 mg PO BID #10 tablet Insulin Glarg,Human.Rec.Analog [Lantus] 18 unit SUBCUT DAILY #360 ml Insulin Lispro [HumaLOG] 6 unit SUBCUT TIDAC #360 ml Home Medications: Home Meds Finasteride [Proscar] 5 mg PO QPM 11/29/16 [History] Omeprazole 20 mg PO BEDTIME 11/29/16 [History] Pravastatin Sodium 40 mg PO QPM 11/30/16 [History] amLODIPine Besylate [Amlodipine Besylate] 5 mg PO QPM 09/26/19 [History] Cefuroxime Axetil [Ceftin] 500 mg PO BID #10 tablet 09/30/19 [Rx] Insulin Glarg,Human.Rec.Analog [Lantus] 18 unit SUBCUT DAILY #360 ml 09/30/19 [ Rx] Insulin Lispro [HumaLOG] 6 unit SUBCUT TIDAC #360 ml 09/30/19 [Rx] Oxygen Therapy Mode: Room Air Patient Handouts: Insulin Storage and Care, Diabetes Mellitus and Foot Care, Urinary Tract Infection, Adult, [id number], Sepsis, Adult, Hyperglycemia, Easy -to-Read, Indwelling Urinary Catheter Care, Adult, [id number], Type 2 Diabetes Mellitus, Self Care, Adult, [id number], Insulin Injection Instructions, Single Insulin Dose, Adult, Type 2 Diabetes Mellitus, Diagnosis, Adult, Kicy-pt-Bwup, Blood Glucose Monitoring, Adult, Diabetes Mellitus and Exercise, Diabetes Mellitus and Nutrition, Adult Forms: ED Department Discharge Referrals: Prudence Rowell PA-C [Primary Care Provider] - 10/07/19 8:30 am (Please follow-up with your primary care provider on SundayOctober 07 at 0830.) - Discharge Summary/Plan Comment DC Time >30 min.: Yes (45) - General Info Date of Service: 09/30/19 Admission Dx/Problem (Free Text: Admission Diagnosis/Problem Admission Diagnosis/Problem Urinary tract infection Functional Status: Reports: Pain Controlled, Tolerating Diet, Ambulating, Urinating. Denies: New Symptoms - Review of Systems General: Reports: No Symptoms. Denies: Fever, Weakness, Fatigue, Malaise, Chills HEENT: Reports: No Symptoms. Denies: Headaches, Sore Throat Pulmonary: Reports: No Symptoms. Denies: Shortness of Breath, Pleuritic Chest Pain, Cough, Sputum, Wheezing Cardiovascular: Reports: No Symptoms. Denies: Chest Pain, Palpitations, Dyspnea on Exertion Gastrointestinal: Reports: No Symptoms. Denies: Abdominal Pain, Constipation, Diarrhea, Nausea, Vomiting Genitourinary: Reports: No Symptoms, Other (marshall in place ). Denies: Pain Musculoskeletal: Reports: No Symptoms Skin: Reports: No Symptoms. Denies: Cyanosis Neurological: Reports: No Symptoms. Denies: Difficulty Walking, Gait Disturbance Psychiatric: Reports: No Symptoms - Patient Data Vitals - Most Recent: Last Vital Signs Temp 97.7 F 09/30/19 11:38 Pulse 79 09/30/19 11:38 Resp 18 09/30/19 11:38 BP 128/55 L 09/30/19 11:38 Pulse Ox 95 09/30/19 11:38 Weight - Most Recent: 200 lb 14.4 oz I&O - Last 24 hours: Intake & Output 09/29/19 09/30/19 09/30/19 22:59 06:59 14:59 Intake Total 1210 480 360 Output Total 650 1650 Balance 560 -1170 360 Lab Results - Last 24 hrs: Laboratory Results - last 24 hr 09/29/19 09/29/19 09/30/19 Range/Units 17:12 20:59 06:58 POC Glucose 240 H 198 H 142 H (83-110) mg/dL ANTONIA Results - Last 24 hrs: Microbiology 09/26/19 12:13 Urine Culture - Final Urine, Catheterized Escherichia Coli Klebsiella Pneumoniae 09/26/19 11:30 Aerobic Blood Culture - Preliminary Blood NO GROWTH AFTER 3 DAYS Anaerobic Blood Culture - Final Med Orders - Current: Current Medications Acetaminophen (Tylenol) 650 mg PO Q4H PRN PRN Reason: Pain (Mild 1-3)/fever Last Admin: 09/30/19 04:15 Dose: 650 mg Amlodipine Besylate (Norvasc) 5 mg PO QPM JANETT Last Admin: 09/29/19 17:16 Dose: 5 mg Dextrose/Water (Dextrose 50% In Water) 50 ml IVPUSH ASDIRECTED PRN PRN Reason: Hypoglycemia Finasteride (Proscar) 5 mg PO QPM [facility] Last Admin: 09/29/19 17:14 Dose: 5 mg Ceftriaxone Sodium 1 gm/ (Sodium Chloride) 100 mls @ 200 mls/hr IV Q24H [facility] Last Admin: 09/30/19 08:29 Dose: 200 mls/hr Insulin Glargine (Lantus) 18 unit SUBCUT DAILY [facility] Last Admin: 09/30/19 08:36 Dose: 18 units Insulin Human Lispro (Humalog) 0 unit SUBCUT QIDACANDBED [facility]; Protocol Last Admin: 09/30/19 11:26 Dose: 4 units Insulin Human Lispro (Humalog) 6 unit SUBCUT TIDAC [facility] Last Admin: 09/30/19 11:27 Dose: 6 units Pantoprazole Sodium (Protonix) 40 mg PO BEDTIME [facility] Last Admin: 09/29/19 20:32 Dose: 40 mg Simvastatin (Zocor) 20 mg PO QPM [facility] Last Admin: 09/29/19 17:14 Dose: 20 mg Sodium Chloride (Saline Flush) 10 ml FLUSH ASDIRECTED PRN PRN Reason: Keep Vein Open Discontinued Medications Ceftriaxone Sodium 2 gm/ (Sodium Chloride) 100 mls @ 200 mls/hr IV ONETIME ONE Stop: 09/26/19 11:22 Last Admin: 09/26/19 11:45 Dose: 200 mls/hr Sodium Chloride (Normal Saline) 1,000 mls @ 999 mls/hr IV ONETIME [facility] Last Admin: 09/26/19 11:19 Dose: 999 mls/hr Lactated Ringer's (Ringers, Lactated) 1,000 mls @ 150 mls/hr IV ASDIRECTED [facility] Last Admin: 09/26/19 13:10 Dose: 150 mls/hr Lactated Ringer's (Ringers, Lactated) 1,000 mls @ 75 mls/hr IV ASDIRECTED [facility] Ceftriaxone Sodium 1 gm/ (Sodium Chloride) 100 mls @ 200 mls/hr IV Q24H [facility] Last Admin: 09/27/19 10:20 Dose: 200 mls/hr Lactated Ringer's (Ringers, Lactated) 1,000 mls @ 75 mls/hr IV ONETIME ONE Stop: 09/27/19 05:49 Last Admin: 09/26/19 17:31 Dose: 75 mls/hr Piperacillin Sod/Tazobactam (Sod 4.5 gm/ Sodium Chloride) 100 mls @ 25 mls/hr IV Q8H [facility] Last Admin: 09/28/19 09:40 Dose: 25 mls/hr Piperacillin Sod/Tazobactam (Sod 4.5 gm/ Sodium Chloride) 100 mls @ 200 mls/hr IV ONETIME ONE Stop: 09/26/19 19:01 Last Admin: 09/26/19 19:25 Dose: 200 mls/hr Piperacillin Sod/Tazobactam (Sod 4.5 gm/ Sodium Chloride) 100 mls @ 25 mls/hr IV Q8H [facility] Last Admin: 09/29/19 12:31 Dose: 25 mls/hr Magnesium Sulfate 4 gm/ Premix 100 mls @ 25 mls/hr IV ONETIME ONE Stop: 09/28/19 20:01 Last Admin: 09/28/19 19:57 Dose: 25 mls/hr Insulin Glargine (Lantus) 15 unit SUBCUT DAILY [facility] Last Admin: 09/28/19 08:26 Dose: 15 units Insulin Human Lispro (Humalog) 5 unit SUBCUT TIDAC [facility] Last Admin: 09/30/19 08:39 Dose: 5 units Insulin Human Regular (Humulin R) 10 unit SUBCUT ONETIME ONE Stop: 09/26/19 12:58 Last Admin: 09/26/19 13:11 Dose: 10 unit Sodium Chloride (Saline Flush) 10 ml FLUSH ASDIRECTED PRN PRN Reason: Keep Vein Open Last Admin: 09/26/19 11:19 Dose: 10 ml - Exam Quality Assessment: Reports: Urine Catheter (Straw urine. Few blood clots in urine. ), DVT Prophylaxis. Denies: Supplemental Oxygen General: Reports: Alert, Oriented, Cooperative, Mild Distress HEENT: Reports: Pupils Equal, Pupils Reactive, Mucous Membr. Moist/[place] Neck: Reports: Supple, Trachea Midline Lungs: Reports: Clear to Auscultation, Normal Respiratory Effort Cardiovascular: Reports: Regular Rate, Regular Rhythm GI/Abdominal Exam: Normal Bowel Sounds, Soft, Non-Tender, No Distention (Male) Exam: Deferred Rectal (Males) Exam: Deferred Back Exam: Reports: Normal Inspection, Decreased Range of Motion Extremities: Normal Inspection, Normal Range of Motion, Non-Tender, No Pedal Edema, Normal Capillary Refill Skin: Reports: Warm, Dry, Intact Neurological: Reports: No New Focal Deficit, Other (Chronic medial left foot numbness ) Psy/Mental Status: Reports: Alert, Normal Affect, Normal Mood
== END 2019-09-30 16:15 | disposition home or self-care (01) | DRG 690 ==
LOC: JD.ED 10:02 → JD.MS 13:39
PROVIDERS: ADMIT Family Medicine; ATTEND Family Medicine
DX: N39.0 Urinary tract infection, site not specified (principal); R31.9 Hematuria, unspecified; R73.9 Hyperglycemia, unspecified; N30.91 Cystitis, unspecified with hematuria; N28.9 Disorder of kidney and ureter, unspecified; E11.65 Type 2 diabetes mellitus with hyperglycemia; Z86.711 Personal history of pulmonary embolism; N42.9 Disorder of prostate, unspecified; B96.20 Unspecified Escherichia coli [E. coli] as the cause of diseases classified elsewhere; I10 Essential (primary) hypertension; Z79.01 Long term (current) use of anticoagulants; N18.3 Chronic kidney disease, stage 3 (moderate); K21.9 Gastro-esophageal reflux disease without esophagitis; N40.1 Benign prostatic hyperplasia with lower urinary tract symptoms; R33.8 Other retention of urine; B96.1 Klebsiella pneumoniae [K. pneumoniae] as the cause of diseases classified elsewhere; E78.00 Pure hypercholesterolemia, unspecified; I12.9 Hypertensive chronic kidney disease with stage 1 through stage 4 chronic kidney disease, or unspecified chronic kidney disease; E11.22 Type 2 diabetes mellitus with diabetic chronic kidney disease; Z79.899 Other long term (current) drug therapy; Z98.49 Cataract extraction status, unspecified eye; Z90.49 Acquired absence of other specified parts of digestive tract
CPT/HCPCS: 36415; 80053; 82009; 83605; 85025; 85610; 86140; 87040; 87086; 96365; 99284; J0696; J1815; J7030; J7050; J7120; 51702; 74176; 74176-26; 81001; 82962; 83036; 83735; 84443; 99222; 99231; 99232; 99239; A9270-GY; J2543; J3475

== ENCOUNTER 2022-05-03 09:11 | Day surgery (SDC) | payer MEDICARE, OTHER ==
[~2022-05-03 09:11] MED LIST: Lactated Ringers 1,000 ML IV SCH; Lidocaine 1%/Sod Bicarbonate in NS 8.4% 1 ML Syringe IDERM PRN; Sodium Chloride 0.9% 10 ML Syringe FLUSH PRN; Sodium Chloride 0.9% 10 ML Syringe FLUSH SCH
[2022-05-03] MEDS ORDERED: Propofol 200 MG/20 ML SDV ONE ×2 (10:31→10:54)
[2022-05-03] MEDS ORDERED: fentaNYL 100 MCG/2 ML SDV ONE (10:31)
[2022-05-03] MEDS ORDERED: Phenylephrine HCl In 0.9% NaCl 1 MG/10 ML Vial ONE (11:00)
[2022-05-03 12:24] VITALS: BP 145/87; PULSE 84
== END 2022-05-03 12:07 | disposition home or self-care (01) ==
LOC: JD.SDS 09:11
PROVIDERS: ATTEND Surgery
DX: D12.5 Benign neoplasm of sigmoid colon (principal); K20.90 Esophagitis, unspecified without bleeding; E75.5 Other lipid storage disorders; K22.89 Other specified disease of esophagus; K57.30 Diverticulosis of large intestine without perforation or abscess without bleeding; K64.8 Other hemorrhoids; K22.70 Barrett's esophagus without dysplasia; K44.9 Diaphragmatic hernia without obstruction or gangrene; I12.9 Hypertensive chronic kidney disease with stage 1 through stage 4 chronic kidney disease, or unspecified chronic kidney disease; N18.9 Chronic kidney disease, unspecified; Z98.890 Other specified postprocedural states; Z79.899 Other long term (current) drug therapy; Z79.4 Long term (current) use of insulin
CPT/HCPCS: 43239; 45380; 45385; J2704; J3010; J7120; 00813; 88305; 88313; 88341; 88342